=== PATIENT | female | born 1955 | race Caucasian/White ===

== ENCOUNTER 2016-07-08 12:10 | Inpatient (IN) | payer MEDICARE, BC ==
--- NOTE | 2016-07-08 12:25 | ER Document Report ---
ED Medical Screen (RME) - General Stated Complaint: DIFFICULTY BREATHING Mode of Arrival: Ambulatory Information source: Patient Notes: Patient reports MS flareup 2 weeks ago, and then it resolved. Patient was lying in bed for the 2 weeks during her MS flare up. Patient complains of cough and shortness of breath for the past 2 weeks. Patient complains of pain behind left knee. Patient does report a history of PE in the past. hx: PE, MS, cochlear implant I have greeted and performed a rapid initial assessment of this patient. A comprehensive ED assessment and evaluation of the patient, analysis of test results and completion of the medical decision making process will be conducted by additional ED providers. TRAVEL OUTSIDE OF THE [place] IN LAST 30 DAYS: No - Related Data Allergies/Adverse Reactions: adhesive tape [Adhesive Tape] Allergy (Unknown, Verified 07/08/16 12:19) Generalized rash Past Medical History - Past Medical History Cardiac Medical History: Reports: Hx Hypercholesterolemia, Hx Pulmonary Embolism - bilaterally, 2004 Denies: Hx Coronary Artery Disease, Hx Heart Attack, Hx Hypertension Pulmonary Medical History: Denies: Hx Asthma, Hx Bronchitis, Hx COPD - PE IN BOTH LUNGS IN 2004, Hx Pneumonia Neurological Medical History: Denies: Hx Cerebrovascular Accident, Hx Seizures GI Medical History: Reports: Hx Gastroesophageal Reflux Disease, Hx Ulcer Musculoskeltal Medical History: Denies Hx Arthritis, Reports Hx Multiple Sclerosis Past Surgical History: Reports: Hx Hysterectomy, Hx Tonsillectomy. Denies: Hx Pacemaker - Immunizations Hx Diphtheria, Pertussis, Tetanus Vaccination: Yes - BOOSTER 02/24 Physical Exam - Respiratory Respiratory status: No respiratory distress Breath sounds: Nonproductive cough
[2016-07-08 13:11] LABS: ABSOLUTE BASOPHILS # (AUTO) 0.1 10^3/uL (0.0-0.2); ABSOLUTE EOSINOPHILS # (AUTO) 0.3 10^3/uL (0.0-0.6); ABSOLUTE LYMPHOCYTES (AUTO) 2.2 10^3/uL (0.5-4.7); ABSOLUTE NEUT (AUTO) 8.8 10^3/uL (1.7-8.2); BASOPHILS % (AUTO) 0.9 % (0-2); EOSINOPHILS % (AUTO) 2.2 % (0-6); HEMOGLOBIN 8.8 g/dL (12.0-15.5); HGB HCT DIFFERENCE -2.6; MEAN CORPUSCULAR HEMOGLOBIN 19.9 pg (27.0-33.4); MEAN CORPUSCULAR HGB CONC 30.2 g/dL (32.0-36.0); MEAN CORPUSCULAR VOLUME 66 fl (80-97); MONOCYTES % (AUTO) 7.9 % (3-13); RED CELL DISTRIBUTION WIDTH 19.8 % (11.5-14.0); WHITE BLOOD COUNT 12.4 10^3/uL (4.0-10.5)
[2016-07-08 13:20] LABS: PROTHROMBIN TIME 23.4 SEC (11.4-15.4)
[2016-07-08 13:21] LABS: PARTIAL THROMBOPLASTIN TIME 44.2 SEC (23.5-35.8)
[2016-07-08 13:37] LABS: ALANINE AMINOTRANSFERASE 31 U/L (9-52); ALBUMIN 3.5 g/dL (3.5-5.0); ALKALINE PHOSPHATASE 71 U/L (38-126); ANION GAP 11 (5-19); ASPARTATE AMINO TRANSFERASE 18 U/L (14-36); BILIRUBIN,TOTAL 0.3 mg/dL (0.2-1.3); BLOOD UREA NITROGEN 16 mg/dL (7-20); CALCIUM 9.8 mg/dL (8.4-10.2); CARBON DIOXIDE 26 mmol/L (22-30); CHLORIDE 109 mmol/L (98-107); CREATINE KINASE 73 U/L (30-135); CREATININE RESULT 0.98 mg/dL (0.52-1.25); GLUCOSE 110 mg/dL (75-110); MAGNESIUM 1.6 mg/dL (1.6-2.3); POTASSIUM 4.6 mmol/L (3.6-5.0); SODIUM 145.5 mmol/L (137-145); TOTAL PROTEIN 6.9 g/dL (6.3-8.2)
[2016-07-08 13:48] LABS: CREATINE KINASE MB 0.67 ng/mL (<4.55); TROPONIN I < 0.012 ng/mL
[2016-07-08] MEDS ORDERED: IPRATROPIUM/ALBUTEROL 0.5-2.5 MG/3 ML AMPUL NEB ONE (14:46)
--- NOTE | 2016-07-08 14:46 | ER Document Report ---
ED Cardiac - General Chief Complaint: Shortness Of Breath Stated Complaint: DIFFICULTY BREATHING Mode of Arrival: Ambulatory Notes: The patient is a 61-year-old female, past month history multiple sclerosis, PE ( on Coumadin), presents with 1 day of left sided chest pain and 3 days of increased left leg pain and swelling. She has never had this pain before and it started at rest, but is subsiding. In addition, she is also having mild shortness of breath and cough. She received a dose of DuoNeb in the ER triage and feels much better. Denies hemoptysis, nausea, vomiting, back pain, numbness , tingling, fevers or rhinorrhea. TRAVEL OUTSIDE OF THE [place] IN LAST 30 DAYS: No - Related Data Allergies/Adverse Reactions: adhesive tape [Adhesive Tape] Allergy (Unknown, Verified 07/08/16 12:19) Generalized rash Past Medical History - General Information source: Patient - Social History Smoking Status: Unknown if Ever Smoked Chew tobacco use (# tins/day): No Frequency of alcohol use: None Drug Abuse: None Family History: DM Patient has suicidal ideation: No Patient has homicidal ideation: No - Past Medical History Cardiac Medical History: Reports: Hx Hypercholesterolemia, Hx Pulmonary Embolism - bilaterally, 2004 Denies: Hx Coronary Artery Disease, Hx Heart Attack, Hx Hypertension Pulmonary Medical History: Denies: Hx Asthma, Hx Bronchitis, Hx COPD - PE IN BOTH LUNGS IN 2004, Hx Pneumonia Neurological Medical History: Denies: Hx Cerebrovascular Accident, Hx Seizures Renal/ Medical History: Denies: Hx Peritoneal Dialysis GI Medical History: Reports: Hx Gastroesophageal Reflux Disease, Hx Ulcer Musculoskeltal Medical History: Denies Hx Arthritis, Reports Hx Multiple Sclerosis Past Surgical History: Reports: Hx Hysterectomy, Hx Tonsillectomy. Denies: Hx Pacemaker - Immunizations Hx Diphtheria, Pertussis, Tetanus Vaccination: Yes - BOOSTER 02/24 Hx Pneumococcal Vaccination: 05/21/13 Review of Systems - Review of Systems Notes: REVIEW OF SYSTEMS: CONSTITUTIONAL: -fevers, -chills EENT: -eye pain, -difficulty swallowing, -nasal congestion CARDIOVASCULAR: +chest pain, -syncope. RESPIRATORY: -cough, +SOB GASTROINTESTINAL: -abdominal pain, -nausea, -vomiting, -diarrhea GENITOURINARY: -dysuria, -hematuria MUSCULOSKELETAL: +left leg pain, -back pain, -neck pain SKIN: -rash or skin lesions. HEMATOLOGIC: -easy bruising or bleeding. LYMPHATIC: -swollen, enlarged glands. NEUROLOGICAL: -altered mental status or loss of consciousness, -headache, - neurologic symptoms PSYCHIATRIC: -anxiety, -depression. ALL OTHER SYSTEMS REVIEWED AND NEGATIVE. Physical Exam - Vital signs Vitals: Temp Pulse Resp BP Pulse Ox 98.5 F 99 21 H 128/78 H 97 07/08/16 12:21 07/08/16 12:21 07/08/16 12:21 07/08/16 12:21 07/08/16 12:21 - Notes Notes: PHYSICAL EXAMINATION: GENERAL: Well-appearing, well-nourished and in no acute distress. HEAD: Atraumatic, normocephalic. EYES: Pupils equal round and reactive to light, extraocular movements intact, sclera anicteric, conjunctiva are normal. ENT: nares patent, oropharynx clear without exudates. Moist mucous membranes. NECK: Normal range of motion, supple without lymphadenopathy LUNGS: Mild wheezing. No respiratory distress. HEART: Regular rate and rhythm without murmurs ABDOMEN: Soft, nontender, normoactive bowel sounds. No guarding, no rebound. No masses appreciated. EXTREMITIES: Left popliteal tenderness and swelling. Normal range of motion, no pitting or edema. No cyanosis. NEUROLOGICAL: Cranial nerves grossly intact. Normal speech. Normal sensory, motor, and reflex exams. PSYCH: Normal mood, normal affect. SKIN: Warm, Dry, normal turgor, no rashes or lesions noted. Course - Re-evaluation Re-evalutation: Patient with chest pain and new EKG changes compared to her prior EKG 2 months ago. In addition, she has positive DVT on her left lower extremity and is on Coumadin. INR is 1.99. Will bring patient in for observation for further evaluation and treatment of her new EKG changes, chest pain and DVT. Patient comfortable with plan. Spoke to Krupa Castellanos and she has accepted the patient. - Vital Signs Vital signs: Temp Pulse Resp BP Pulse Ox 98.5 F 91 18 115/82 97 07/08/16 12:21 07/08/16 18:19 07/08/16 18:19 07/08/16 15:01 07/08/16 18:19 - Laboratory Result Diagrams: 07/08/16 12:45 02/18/17 12:45 Laboratory results interpreted by me: 07/08/16 07/08/16 07/08/16 12:45 12:45 12:45 WBC 12.4 H Hgb 8.8 L Hct 29.0 L MCV 66 L MCH 19.9 L MCHC 30.2 L RDW 19.8 H Plt Count 655 H Absolute Neutrophils 8.8 H PT 23.4 H APTT 44.2 H Sodium 145.5 H Chloride 109 H Est GFR (Non-Af Amer) 57 L Discharge - Discharge Clinical Impression: Cough, Acute electrocardiogram changes Chest pain Qualifiers: Chest pain type: unspecified Qualified Code(s): R07.9 - Chest pain, unspecified DVT (deep venous thrombosis) Qualifiers: DVT location: lower extremity Affected thrombotic vein of extremity: unspecified vein of extremity Laterality: left Chronicity: unspecified Qualified Code(s): I82.402 - Acute embolism and thrombosis of unspecified deep veins of left lower extremity Condition: Good Disposition: ADMITTED OBSERVATION Admitting Provider: Hospitalist - [facility] Admitted: Telemetry
[2016-07-08] MEDS ORDERED: NITROGLYCERIN 0.4 MG/TAB 25 TAB/BOTTLE SL PRN (14:51)
[2016-07-08] MEDS ORDERED: ONDANSETRON HCL INJ/PF 4 MG/2 ML SDV IV PRN (14:58)
[2016-07-08] MEDS ORDERED: HYDROCODONE/ACETAMINOPHEN 5-325 MG 6 TAB/DSPK PO PRN (14:58)
[2016-07-08] MEDS ORDERED: GUAIFENESIN SYRP 200 MG/10 ML UDC PO PRN (15:00)
[2016-07-08] MEDS ORDERED: IPRATROPIUM/ALBUTEROL 0.5-2.5 MG/3 ML AMPUL NEB PRN (15:00)
[2016-07-08] MEDS ORDERED: LORAZEPAM 0.5 MG TABLET PO PRN (16:17)
[2016-07-08] MEDS ORDERED: BACLOFEN 10 MG TABLET PO PRN (16:22)
[2016-07-08] MEDS ORDERED: BACLOFEN 20 MG TABLET PO PRN (16:33)
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
--- NOTE | 2016-07-08 18:38 | EKG REPORT ---
SEVERITY:- BORDERLINE ECG - SINUS RHYTHM BORDERLINE LEFT AXIS DEVIATION BORDERLINE T ABNORMALITIES, ANT-LAT LEADS : Confirmed by: Ailyn Saldana 08-Jul-2016 18:37:25
[2016-07-08] MEDS: LANSOPRAZOLE 30 MG TAB.RAP.DR PO SCH (18:51)
[2016-07-08] MEDS: METHYLPREDNISOLONE INJ 125 MG/2 ML SDV IV SCH (18:52)
[2016-07-08] MEDS ORDERED: HYDROCODONE/ACETAMINOPHEN 5-325 MG TABLET ONE (20:22)
[2016-07-08] MEDS ORDERED: WARFARIN SODIUM 7.5 MG TABLET PO SCH (22:00)
[2016-07-08] MEDS ORDERED: METOPROLOL SUCCINATE 25 MG TAB.SR.24H PO SCH (22:00)
[2016-07-08] MEDS ORDERED: VENLAFAXINE HCL 37.5 MG CAP.SR.24H PO SCH (22:00)
[2016-07-08] MEDS: VENLAFAXINE HCL 75 MG CAP.SR.24H PO SCH (22:58)
[2016-07-08] MEDS: SIMVASTATIN 10 MG TABLET PO SCH (22:58)
[2016-07-08] MEDS: GABAPENTIN 300 MG CAPSULE PO SCH (22:59)
[2016-07-09] MEDS: IPRATROPIUM/ALBUTEROL 0.5-2.5 MG/3 ML AMPUL NEB SCH ×3 (00:47→16:21)
[2016-07-09] MEDS: METHYLPREDNISOLONE INJ 125 MG/2 ML SDV IV SCH ×3 (02:47→17:42)
[2016-07-09] MEDS: LANSOPRAZOLE 30 MG TAB.RAP.DR PO SCH ×2 (06:34→17:39)
[2016-07-09 08:08] LABS: PROTHROMBIN TIME 21.9 SEC (11.4-15.4)
[2016-07-09] MEDS: GABAPENTIN 300 MG CAPSULE PO SCH ×2 (08:15→21:20)
[2016-07-09 08:16] LABS: CHOLESTEROL 170.13 mg/dL (0-200); Direct HDL 37 mg/dL (>40); TRIGLYCERIDES 128 mg/dL (<150)
[2016-07-09 08:27] LABS: DIRECT LDL 103 mg/dL (<100)
[2016-07-09] MEDS: ENOXAPARIN SODIUM INJ 80 MG/0.8 ML DISP.SYRIN SUBCUT SCH ×2 (10:11→21:20)
[2016-07-09] MEDS: ASPIRIN 81 MG TABLET, CHEWABLE PO SCH (10:12)
[2016-07-09] MEDS: FLUTICASONE NASAL SPRAY 50 MCG/SPRY 120 SPRAY/16 GM NASL SCH (10:20)
[2016-07-09 13:31] LABS: APPEARANCE,URINE CLEAR; BILIRUBIN,URINE NEGATIVE (NEGATIVE); GLUCOSE, URINE >=500 mg/dL (NEGATIVE); KETONES,URINE NEGATIVE (NEGATIVE); LEUKOCYTE ESTERASE,URINE NEGATIVE (NEGATIVE); NITRITE,URINE NEGATIVE (NEGATIVE); PROTEIN,URINE NEGATIVE (NEGATIVE); URINE SPECIFIC GRAVITY 1.017; UROBILINOGEN,URINE NEGATIVE mg/dL (<2.0)
--- NOTE | 2016-07-09 14:09 | PDOC PROGRESS REPORT ---
Subjective Progress Note for:: 07/09/16 Subjective:: Patient seen on morning rounds. She is presently resting comfortably in bed. She states her cough is somewhat improved since admission. She continues to have shortness of breath with exertion. She was found on CTA of her chest and abdomen to have new pulmonary embolus despite being on Coumadin. Her INR is slightly subtherapeutic. She states she has been compliant with her medication but not with the frequency of her testing. She has not seen a dimension specification inspector for coagulopathy workup. She is also noted to be anemic. She states she has a family history of iron deficiency and B12 anemias. She denies any chest pain overnight or headache. Denies any nausea, vomiting, or abdominal pain. She continues have mild pain in left knee. Her venous duplex of the knee was negative. She denies any other symptoms at the present time. Physical Exam Vital Signs: Temp Pulse Resp BP Pulse Ox 98.7 F 98 21 H 137/73 H 95 07/09/16 11:30 07/09/16 11:30 07/09/16 11:30 07/09/16 11:30 07/09/16 11:30 Intake & Output 07/08/16 07/09/16 07/10/16 06:59 06:59 06:59 Intake Total 540 Balance 540 Weight 83.4 kg General appearance: PRESENT: no acute distress, well-developed, well-nourished Head exam: PRESENT: atraumatic, normocephalic Eye exam: PRESENT: conjunctiva pink, EOMI, PERRLA. ABSENT: scleral icterus Ear exam: PRESENT: normal external ear exam Mouth exam: PRESENT: moist, tongue midline Neck exam: ABSENT: carotid bruit, JVD, lymphadenopathy, thyromegaly Respiratory exam: PRESENT: clear to auscultation adrián. ABSENT: rales, rhonchi, wheezes Cardiovascular exam: PRESENT: RRR. ABSENT: diastolic murmur, rubs, systolic murmur Pulses: PRESENT: normal dorsalis pedis pul Vascular exam: PRESENT: normal capillary refill GI/Abdominal exam: PRESENT: normal bowel sounds, soft. ABSENT: distended, guarding, mass, organolmegaly, rebound, tenderness Rectal exam: PRESENT: deferred Extremities exam: PRESENT: full ROM. ABSENT: calf tenderness, clubbing, pedal edema Neurological exam: PRESENT: alert, awake, oriented to person, oriented to place , oriented to time, oriented to situation, CN II-XII grossly intact. ABSENT: motor sensory deficit Psychiatric exam: PRESENT: appropriate affect, normal mood. ABSENT: homicidal ideation, suicidal ideation Skin exam: PRESENT: dry, intact, warm. ABSENT: cyanosis, rash Results Laboratory Results: 07/09/16 07/09/16 07:45 13:05 Triglycerides 128 Cholesterol 170.13 LDL Cholesterol Direct 103 H VLDL Cholesterol 26.0 HDL Cholesterol 37 L Urine Color STRAW Urine Appearance CLEAR Urine pH 6.0 Ur Specific [place] 1.017 Urine Protein NEGATIVE Urine Glucose (UA) >=500 H Urine Ketones NEGATIVE Urine Blood NEGATIVE Urine Nitrite NEGATIVE Ur Leukocyte Esterase NEGATIVE Urine WBC (Auto) 1 Urine RBC (Auto) 0 07/08/16 07/09/16 07/09/16 19:30 01:21 07:45 Troponin I < 0.012 < 0.012 < 0.012 Impressions: Chest/Abdomen CTA 07/08/16 00:00 IMPRESSION: 1. Positive for pulmonary embolus in a patient with known DVT. Chest X-Ray 07/08/16 12:24 IMPRESSION: No acute findings Venous Doppler Study 07/08/16 14:46 IMPRESSION: Positive for left calf DVT, posterior tibial and peroneal veins. Assessment & Plan - Diagnosis (1) Chest pain Qualifiers: Chest pain type: unspecified Qualified Code(s): R07.9 - Chest pain, unspecified Is this a current diagnosis for this admission?: YesPlan: Pain is atypical for angina. Troponin is negative. ECG nonspecific T wave changes in anterior leads. Will admit to [facility] as observation. Serial troponins (2) Chronic anticoagulation Is this a current diagnosis for this admission?: YesPlan: Patient has history of PE on Warfarin therapeutic levels. Will obtain CTA of chest to rule out any new processes (3) GERD (gastroesophageal reflux disease) Qualifiers: Esophagitis presence: without esophagitis Qualified Code(s): K21.9 - Gastro-esophageal reflux disease without esophagitis Is this a current diagnosis for this admission?: YesPlan: Continue PPI (4) Hyperlipidemia Qualifiers: Hyperlipidemia type: unspecified Qualified Code(s): E78.5 - Hyperlipidemia, unspecified Is this a current diagnosis for this admission?: YesPlan: Continue statin therapy (5) Multiple sclerosis Is this a current diagnosis for this admission?: YesPlan: Stable continue home medications (6) Cough Is this a current diagnosis for this admission?: YesPlan: Steroids, nebulizer treatment - Time Time Spent with patient: 25-34 minutes Critical Time spent with patient: 15-24 minutes Medications reviewed and adjusted accordingly: Yes - Inpatient Certification Based on my medical assessment, after consideration of the patient's comorbidities, presenting symptoms, or acuity I expect that the services needed warrant INPATIENT care.: Yes I certify that my determination is in accordance with my understanding of Medicare's requirements for reasonable and necessary INPATIENT services [42 CFR 412.3e].: Yes Medical Necessity: Need Close Monitoring Due to Risk of Patient Decompensation
[2016-07-09] MEDS ORDERED: DIPHENOXYLATE HCL/ATROP SULF 2.5-0.025 MG TABLET PO PRN (14:23)
[2016-07-09] MEDS ORDERED: DICYCLOMINE HCL 10 MG CAPSULE PO PRN (14:23)
[2016-07-09] MEDS ORDERED: BACLOFEN 10 MG TABLET PO PRN (14:23)
[2016-07-09] MEDS ORDERED: GLATIRAMER ACETATE 40 MG SQ SCH (14:45)
[2016-07-09] MEDS ORDERED: ARMODAFINIL 150 MG PO SCH (15:00)
[2016-07-09] MEDS ORDERED: MAG CARB/AL HYDROX/ALGINIC AC 355 ML BOTTLE PO PRN (15:48)
[2016-07-09] MEDS ORDERED: MAG CARB/AL HYDROX/ALGINIC AC 355 ML BOTTLE PO ONE (16:30)
[2016-07-09] MEDS: METOPROLOL SUCCINATE 25 MG TAB.SR.24H PO SCH (17:42)
[2016-07-09] MEDS: SIMVASTATIN 10 MG TABLET PO SCH (21:21)
[2016-07-09] MEDS: ZOLPIDEM TARTRATE 5 MG TABLET PO PRN (21:21)
[2016-07-09] MEDS: VENLAFAXINE HCL 75 MG CAP.SR.24H PO SCH (21:21)
[2016-07-09] MEDS ORDERED: VENLAFAXINE HCL 37.5 MG CAP.SR.24H PO SCH (22:00)
[2016-07-09] MEDS ORDERED: GABAPENTIN 300 MG CAPSULE PO SCH (22:00)
[2016-07-10] MEDS: IPRATROPIUM/ALBUTEROL 0.5-2.5 MG/3 ML AMPUL NEB SCH ×3 (00:21→16:00)
[2016-07-10] MEDS: METHYLPREDNISOLONE INJ 125 MG/2 ML SDV IV SCH (02:26)
[2016-07-10 05:46] LABS: HEMATOCRIT 26.8 % (36.0-47.0); HGB HCT DIFFERENCE -2.8; MEAN CORPUSCULAR HEMOGLOBIN 19.8 pg (27.0-33.4); MEAN CORPUSCULAR HGB CONC 30.1 g/dL (32.0-36.0); MEAN CORPUSCULAR VOLUME 66 fl (80-97); RED BLOOD COUNT 4.06 10^6/uL (3.72-5.28); RED CELL DISTRIBUTION WIDTH 20.7 % (11.5-14.0); WHITE BLOOD COUNT 24.5 10^3/uL (4.0-10.5)
[2016-07-10] MEDS: LANSOPRAZOLE 30 MG TAB.RAP.DR PO SCH ×2 (05:53→18:06)
[2016-07-10] MEDS ORDERED: LORAZEPAM 0.5 MG TABLET PO PRN (07:21)
[2016-07-10] MEDS ORDERED: ARMODAFINIL 150 MG PO SCH (08:00)
[2016-07-10 08:06] LABS: PROTHROMBIN TIME 27.1 SEC (11.4-15.4)
[2016-07-10] MEDS: GABAPENTIN 300 MG CAPSULE PO SCH ×2 (09:29→21:38)
[2016-07-10] MEDS: FLUTICASONE NASAL SPRAY 50 MCG/SPRY 120 SPRAY/16 GM NASL SCH (09:29)
[2016-07-10] MEDS: ASPIRIN 81 MG TABLET, CHEWABLE PO SCH (09:30)
[2016-07-10] MEDS: VALACYCLOVIR HCL 500 MG TABLET PO SCH (09:30)
[2016-07-10] MEDS: ENOXAPARIN SODIUM INJ 80 MG/0.8 ML DISP.SYRIN SUBCUT SCH (09:32)
[2016-07-10] MEDS: LEVOFLOXACIN 750 MG TABLET PO SCH (09:35)
[2016-07-10] MEDS ORDERED: GLATIRAMER ACETATE 40 MG SQ SCH (10:00)
[2016-07-10] MEDS: PREDNISONE 20 MG TABLET PO SCH ×2 (10:17→18:05)
[2016-07-10] MEDS: IRON POLYSACCHARIDES COMPLEX 150 MG CAPSULE PO SCH (11:42)
[2016-07-10] MEDS ORDERED: ENOXAPARIN SODIUM INJ 80 MG/0.8 ML DISP.SYRIN SUBCUT SCH (14:40)
[2016-07-10] MEDS ORDERED: METOCLOPRAMIDE HCL ORAL SOLN 10 MG/10 ML UDCUP PO ONE (16:04)
[2016-07-10] MEDS ORDERED: LIDOCAINE 2% VISCOUS SOLN 20 ML UDCUP PO ONE (16:04)
[2016-07-10] MEDS ORDERED: MAG HYDROX/AL HYDROX/SIMETH SUSP 30 ML UDCUP PO ONE (16:04)
[2016-07-10] MEDS ORDERED: KETOROLAC TROMETHAMINE INJ/PF 30 MG/1 ML SDV IV ONE (16:30)
[2016-07-10 16:58] LABS: FOLATE 5.43 ng/mL (>2.76)
[2016-07-10] MEDS ORDERED: MORPHINE SULFATE 10 MG/ML INJ IV ONE (17:00)
[2016-07-10] MEDS: METOPROLOL SUCCINATE 25 MG TAB.SR.24H PO SCH (18:06)
--- NOTE | 2016-07-10 20:08 | EKG REPORT ---
SEVERITY:- NORMAL ECG - SINUS RHYTHM : Confirmed by: Ailyn Saldana 10-Jul-2016 20:06:28
--- NOTE | 2016-07-10 21:12 | XCELERA REPORT ---
[address] [address] Transthoracic Echocardiogram Report Name: LAUREN DIAL Age: 61 yrs Gender: Female : 1955 Patient Status: Inpatient Patient Location: [id number]\S\404\S\B Study Date: 07/10/2016 02:02 PM Height: 61 in Weight: 183 lb BSA: 1.8 m2 Procedure: A two-dimensional transthoracic echocardiogram with color flow and Doppler was performed. Study Quality: Fair. Reason For Study: SOB, PE and cardiomegaly History: SOB, PE and cardiomegaly. Ordering Physician: LEYLA CASTRO Performed By: Ashley Goodman Interpretation Summary The left ventricle is normal in size. There is normal left ventricular wall thickness. LV EF is > than 65% Left ventricular systolic function is normal. Doppler measurements suggest impaired left ventricular relaxation, which is associated with grade I/IV or mild diastolic dysfunction The left ventricular wall motion is normal. The left atrial size is normal. The interatrial septum is intact with no evidence for an atrial septal defect. There is no evidence of mitral valve prolapse. There is no mitral valve stenosis. There is a trace amount of mitral regurgitation There is no aortic valve stenosis There is no LVOT obstruction. No aortic regurgitation is present. There is no tricuspid stenosis. There is a trace amount of tricuspid regurgitation There is mild pulmonary hypertension by echo RVSP is 35 to 40 mm of Hg , with RA mean of 5 to 10. There is no pulmonic valvular stenosis. There is no pulmonic valvular regurgitation. There is no pericardial effusion. MMode/2D Measurements \T\ Calculations RVDd: 2.6 cm LVIDd: 5.0 cm FS: 48.5 % Ao root diam: 2.7 cm IVSd: 1.0 cm LVIDs: 2.6 cm EDV(Teich): 118.7 ml LVPWd: 0.99 cm ESV(Teich): 24.1 ml Ao root area: 5.6 cm2 EF(Teich): 79.7 % LA dimension: 3.5 cm Doppler Measurements \T\ Calculations MV E max joshua: MV P1/2t max joshua: Ao V2 max: LV V1 max P.8 cm/sec 95.3 cm/sec 140.1 cm/sec 4.5 mmHg MV A max joshua: MV P1/2t: 62.1 msec Ao max PG: LV V1 max: 119.4 cm/sec 7.8 mmHg 105.6 cm/sec MV E/A: 0.79 MVA(P1/2t): 3.5 cm2 MV dec slope: 449.1 cm/sec2 MV dec time: 0.20 sec PA V2 max: TR max joshua: 93.8 cm/sec 271.5 cm/sec PA max P.5 mmHgTR max P.5 mmHg Left Ventricle The left ventricle is normal in size. There is normal left ventricular wall thickness. LV EF is > than 65%. Left ventricular systolic function is normal. Doppler measurements suggest impaired left ventricular relaxation, which is associated with grade I/IV or mild diastolic dysfunction. The left ventricular wall motion is normal. There is no thrombus. There is no ventricular septal defect visualized. Right Ventricle The right ventricle is normal in size and function. Atria The right atrium is normal. The left atrial size is normal. The interatrial septum is intact with no evidence for an atrial septal defect. Mitral Valve There is no evidence of mitral valve prolapse. There is no vegetation seen on the mitral valve. There is no mitral valve stenosis. There is a trace amount of mitral regurgitation. Aortic Valve The aortic valve is trileaflet. The aortic valve opens well. There is no aortic valvular vegetation. There is no aortic valve stenosis. There is no LVOT obstruction. No aortic regurgitation is present. Tricuspid Valve There is no tricuspid stenosis. There is a trace amount of tricuspid regurgitation. There is mild pulmonary hypertension by echo. RVSP is 35 to 40 mm of Hg , with RA mean of 5 to 10. Pulmonic Valve There is no pulmonic valvular stenosis. There is no pulmonic valvular regurgitation. Great Vessels The aortic root is normal size. Effusions There is no pericardial effusion. : LEYLA CASTRO > Gabriella Chi
[2016-07-10] MEDS: ENOXAPARIN SODIUM INJ 100 MG/1 ML DISP.SYRIN SUBCUT SCH (21:38)
[2016-07-10] MEDS: VENLAFAXINE HCL 75 MG CAP.SR.24H PO SCH (21:38)
[2016-07-10] MEDS: SIMVASTATIN 10 MG TABLET PO SCH (21:38)
[2016-07-10 21:54] LABS: APPEARANCE,URINE CLEAR; BILIRUBIN,URINE NEGATIVE (NEGATIVE); GLUCOSE, URINE NEGATIVE (NEGATIVE); KETONES,URINE NEGATIVE (NEGATIVE); LEUKOCYTE ESTERASE,URINE TRACE (NEGATIVE); NITRITE,URINE NEGATIVE (NEGATIVE); PROTEIN,URINE NEGATIVE (NEGATIVE); URINE SPECIFIC GRAVITY 1.016; UROBILINOGEN,URINE NEGATIVE mg/dL (<2.0)
[2016-07-11] MEDS: LANSOPRAZOLE 30 MG TAB.RAP.DR PO SCH ×2 (05:12→17:21)
[2016-07-11] MEDS: GABAPENTIN 300 MG CAPSULE PO SCH ×2 (07:45→21:28)
[2016-07-11] MEDS: HYDROCODONE/ACETAMINOPHEN 5-325 MG TABLET PO PRN ×2 (08:19→13:29)
[2016-07-11] MEDS: ASPIRIN 81 MG TABLET, CHEWABLE PO SCH (09:32)
[2016-07-11] MEDS: PREDNISONE 20 MG TABLET PO SCH ×2 (09:32→17:21)
[2016-07-11] MEDS: FLUTICASONE NASAL SPRAY 50 MCG/SPRY 120 SPRAY/16 GM NASL SCH (09:32)
[2016-07-11] MEDS: LEVOFLOXACIN 750 MG TABLET PO SCH (09:32)
[2016-07-11] MEDS: VALACYCLOVIR HCL 500 MG TABLET PO SCH (09:33)
[2016-07-11] MEDS: ENOXAPARIN SODIUM INJ 100 MG/1 ML DISP.SYRIN SUBCUT SCH ×2 (09:41→21:28)
[2016-07-11 12:38] LABS: HEMATOCRIT 27.6 % (36.0-47.0); HEMOGLOBIN 8.2 g/dL (12.0-15.5); MEAN CORPUSCULAR HEMOGLOBIN 19.2 pg (27.0-33.4); MEAN CORPUSCULAR HGB CONC 29.8 g/dL (32.0-36.0); MEAN CORPUSCULAR VOLUME 65 fl (80-97); RED BLOOD COUNT 4.28 10^6/uL (3.72-5.28); WHITE BLOOD COUNT 22.6 10^3/uL (4.0-10.5)
[2016-07-11 13:03] LABS: ANION GAP 11 (5-19); BLOOD UREA NITROGEN 28 mg/dL (7-20); CALCIUM 9.9 mg/dL (8.4-10.2); CARBON DIOXIDE 24 mmol/L (22-30); CHLORIDE 104 mmol/L (98-107); GLUCOSE 129 mg/dL (75-110); MAGNESIUM 2.1 mg/dL (1.6-2.3); SODIUM 139.2 mmol/L (137-145)
[2016-07-11] MEDS: IRON POLYSACCHARIDES COMPLEX 150 MG CAPSULE PO SCH (13:20)
--- NOTE | 2016-07-11 16:33 | PDOC PROGRESS REPORT ---
Subjective Progress Note for:: 07/11/16 Subjective:: The patient was seen earlier today on rounds. The patient denies any nausea, vomiting, diarrhea, shortness of breath, dizziness, chest pain, heart palpitations, fevers, or chills. The patient has remained afebrile. Blood pressures have been in a good range. When prompted the patient voices no other concerns at this time. Review of systems: The rest of the review of systems is negative. Physical Exam Vital Signs: Temp Pulse Resp BP Pulse Ox 97.5 F 78 16 129/75 H 99 07/11/16 12:00 07/11/16 14:00 07/11/16 12:00 07/11/16 12:00 07/11/16 12:00 Intake & Output 07/09/16 07/10/16 07/11/16 23:59 23:59 23:59 Intake Total 725 580 Output Total 0 400 Balance 725 180 Weight 83.2 kg 84.2 kg General appearance: PRESENT: no acute distress, well-developed, well-nourished Head exam: PRESENT: atraumatic, normocephalic Eye exam: PRESENT: conjunctiva pink, EOMI, PERRLA. ABSENT: scleral icterus Ear exam: PRESENT: normal external ear exam Mouth exam: PRESENT: moist, tongue midline Neck exam: ABSENT: carotid bruit, JVD, lymphadenopathy, thyromegaly Respiratory exam: PRESENT: rhonchi, symmetrical, unlabored. ABSENT: rales, tachypnea, wheezes Cardiovascular exam: PRESENT: RRR. ABSENT: diastolic murmur, rubs, systolic murmur Pulses: PRESENT: normal dorsalis pedis pul Vascular exam: PRESENT: normal capillary refill GI/Abdominal exam: PRESENT: normal bowel sounds, soft. ABSENT: distended, guarding, mass, organolmegaly, rebound, tenderness Rectal exam: PRESENT: deferred Extremities exam: PRESENT: full ROM. ABSENT: calf tenderness, clubbing, pedal edema Neurological exam: PRESENT: alert, awake, oriented to person, oriented to place , oriented to time, oriented to situation, CN II-XII grossly intact. ABSENT: motor sensory deficit Psychiatric exam: PRESENT: normal mood, unusual affect. ABSENT: homicidal ideation, suicidal ideation Skin exam: PRESENT: dry, intact, warm. ABSENT: cyanosis, rash Results Laboratory Results: 07/11/16 12:20 07/11/16 12:20 07/10/16 07/10/16 07/11/16 14:59 21:30 12:20 WBC 22.6 H RBC 4.28 Hgb 8.2 L Hct 27.6 L MCV 65 L MCH 19.2 L MCHC 29.8 L RDW 20.0 H Plt Count 717 H Sodium Potassium Chloride Carbon Dioxide Anion Gap BUN Creatinine Est GFR ( Amer) Est GFR (Non-Af Amer) Glucose Calcium Magnesium Iron 16.3 L TIBC 499 H % Saturation 3 Ferritin 13.30 Vitamin B12 184.0 L Folate 5.43 Urine Color YELLOW Urine Appearance CLEAR Urine pH 6.0 Ur Specific [place] 1.016 Urine Protein NEGATIVE Urine Glucose (UA) NEGATIVE Urine Ketones NEGATIVE Urine Blood NEGATIVE Urine Nitrite NEGATIVE Ur Leukocyte Esterase TRACE H Urine WBC (Auto) 3 Urine RBC (Auto) 1 07/11/16 12:20 WBC RBC Hgb Hct MCV MCH MCHC RDW Plt Count Sodium 139.2 Potassium 4.0 Chloride 104 Carbon Dioxide 24 Anion Gap 11 BUN 28 H Creatinine 0.80 Est GFR ( Amer) > 60 Est GFR (Non-Af Amer) > 60 Glucose 129 H Calcium 9.9 Magnesium 2.1 Iron TIBC % Saturation Ferritin Vitamin B12 Folate Urine Color Urine Appearance Urine pH Ur Specific [place] Urine Protein Urine Glucose (UA) Urine Ketones Urine Blood Urine Nitrite Ur Leukocyte Esterase Urine WBC (Auto) Urine RBC (Auto) Impressions: Chest/Abdomen CTA 07/08/16 00:00 IMPRESSION: 1. Positive for pulmonary embolus in a patient with known DVT. Venous Doppler Study 07/08/16 14:46 IMPRESSION: Positive for left calf DVT, posterior tibial and peroneal veins. Chest X-Ray 07/11/16 00:00 IMPRESSION: 1. Trace pleural effusions may be present. The lungs are otherwise clear. Assessment & Plan - Diagnosis (1) Pulmonary embolism Qualifiers: Pulmonary embolism type: other Chronicity: chronic Acute cor pulmonale presence: without acute cor pulmonale Qualified Code(s): I27.82 - Chronic pulmonary embolism Is this a current diagnosis for this admission?: YesPlan: Echo was unremarkable. Will continue Lovenox. (2) Chest pain Qualifiers: Chest pain type: unspecified Qualified Code(s): R07.9 - Chest pain, unspecified Is this a current diagnosis for this admission?: YesPlan: Nearly resolved. Will obtain chest x-ray given the patient's white count and rhonchorous lung sounds. (3) DVT (deep venous thrombosis) Qualifiers: DVT location: lower extremity Affected thrombotic vein of extremity: unspecified vein of extremity Laterality: left Chronicity: unspecified Qualified Code(s): I82.402 - Acute embolism and thrombosis of unspecified deep veins of left lower extremity Is this a current diagnosis for this admission?: YesPlan: Will continue Lovenox appears patient's failed outpatient Coumadin. (4) DVT (deep venous thrombosis) Qualifiers: DVT location: lower extremity Affected thrombotic vein of extremity: tibial Laterality: left Is this a current diagnosis for this admission?: Yes (5) Anemia of chronic disease Is this a current diagnosis for this admission?: Yes (6) Multiple sclerosis Is this a current diagnosis for this admission?: Yes (7) Chronic anticoagulation Is this a current diagnosis for this admission?: Yes (8) GERD (gastroesophageal reflux disease) Qualifiers: Esophagitis presence: without esophagitis Qualified Code(s): K21.9 - Gastro-esophageal reflux disease without esophagitis Is this a current diagnosis for this admission?: Yes (9) Hyperlipidemia Qualifiers: Hyperlipidemia type: unspecified Qualified Code(s): E78.5 - Hyperlipidemia, unspecified Is this a current diagnosis for this admission?: Yes - Time Time Spent with patient: 25-34 minutes Medications reviewed and adjusted accordingly: Yes Anticipated discharge: Home Within: within 24 hours
[2016-07-11] MEDS: METOPROLOL SUCCINATE 25 MG TAB.SR.24H PO SCH (17:21)
[2016-07-11] MEDS: SIMVASTATIN 10 MG TABLET PO SCH (21:28)
[2016-07-11] MEDS: DIPHENHYDRAMINE HCL 25 MG CAPSULE PO SCH (21:28)
[2016-07-11] MEDS: VENLAFAXINE HCL 75 MG CAP.SR.24H PO SCH (21:28)
[2016-07-11] MEDS: ZOLPIDEM TARTRATE 5 MG TABLET PO PRN (21:36)
[2016-07-12] MEDS: LANSOPRAZOLE 30 MG TAB.RAP.DR PO SCH ×2 (05:18→18:08)
[2016-07-12 06:10] LABS: HEMATOCRIT 26.2 % (36.0-47.0); HGB HCT DIFFERENCE -2.5; MEAN CORPUSCULAR HEMOGLOBIN 19.7 pg (27.0-33.4); MEAN CORPUSCULAR HGB CONC 30.3 g/dL (32.0-36.0); MEAN CORPUSCULAR VOLUME 65 fl (80-97); RED BLOOD COUNT 4.02 10^6/uL (3.72-5.28); RED CELL DISTRIBUTION WIDTH 20.2 % (11.5-14.0); WHITE BLOOD COUNT 19.9 10^3/uL (4.0-10.5)
[2016-07-12 06:22] LABS: HEMOGLOBIN 7.9 g/dL (12.0-15.5)
[2016-07-12 06:30] LABS: ANION GAP 9 (5-19); BLOOD UREA NITROGEN 27 mg/dL (7-20); CALCIUM 9.6 mg/dL (8.4-10.2); CARBON DIOXIDE 25 mmol/L (22-30); CHLORIDE 106 mmol/L (98-107); GLUCOSE 97 mg/dL (75-110); MAGNESIUM 2.4 mg/dL (1.6-2.3); SODIUM 139.9 mmol/L (137-145)
[2016-07-12 06:56] LABS: POTASSIUM 4.3 mmol/L (3.6-5.0)
[2016-07-12] MEDS: GABAPENTIN 300 MG CAPSULE PO SCH ×2 (07:50→21:14)
[2016-07-12] MEDS: HYDROCODONE/ACETAMINOPHEN 5-325 MG TABLET PO PRN ×2 (08:37→21:14)
[2016-07-12 08:42] LABS: APPEARANCE,URINE SLIGHTLY-CLOUDY; BILIRUBIN,URINE NEGATIVE (NEGATIVE); GLUCOSE, URINE NEGATIVE (NEGATIVE); KETONES,URINE NEGATIVE (NEGATIVE); LEUKOCYTE ESTERASE,URINE LARGE (NEGATIVE); NITRITE,URINE NEGATIVE (NEGATIVE); PROTEIN,URINE NEGATIVE (NEGATIVE); URINE SPECIFIC GRAVITY 1.014; UROBILINOGEN,URINE NEGATIVE mg/dL (<2.0)
[2016-07-12] MEDS ORDERED: BISACODYL 10 MG SUPP.RECT PR ONE (08:47)
[2016-07-12] MEDS ORDERED: BISACODYL 10 MG SUPP.RECT PR PRN (08:47)
[2016-07-12] MEDS ORDERED: DIPHENHYDRAMINE HCL 25 MG CAPSULE PO PRN (09:13)
[2016-07-12] MEDS ORDERED: ACETAMINOPHEN 325 MG TABLET PO PRN (09:13)
[2016-07-12] MEDS: VALACYCLOVIR HCL 500 MG TABLET PO SCH (09:46)
[2016-07-12] MEDS: PREDNISONE 20 MG TABLET PO SCH ×2 (09:47→18:08)
[2016-07-12] MEDS: LEVOFLOXACIN 750 MG TABLET PO SCH (09:48)
[2016-07-12] MEDS: ASPIRIN 81 MG TABLET, CHEWABLE PO SCH (09:48)
[2016-07-12] MEDS: FLUTICASONE NASAL SPRAY 50 MCG/SPRY 120 SPRAY/16 GM NASL SCH (09:51)
[2016-07-12] MEDS ORDERED: FERUMOXYTOL (NON-ESRD) 510 MG/NS 100 ML IV ONE ×2 (10:30)
[2016-07-12] MEDS: ENOXAPARIN SODIUM INJ 100 MG/1 ML DISP.SYRIN SUBCUT SCH ×2 (10:30→21:14)
[2016-07-12] MEDS: IRON POLYSACCHARIDES COMPLEX 150 MG CAPSULE PO SCH (11:33)
--- NOTE | 2016-07-12 15:34 | PDOC PROGRESS REPORT ---
Subjective Progress Note for:: 07/12/16 Subjective:: The patient was seen earlier today on rounds. The patient denies any nausea, vomiting, diarrhea, shortness of breath, dizziness, chest pain, heart palpitations, fevers, or chills. The patient has remained afebrile. Blood pressures have been in a good range. The patient did have a significant bowel movement which improved her symptoms. When prompted the patient voices no other concerns at this time. I discussed the case with Dr. Lentz who is agreed to see the patient. Review of systems: The rest of the review of systems is negative. Physical Exam Vital Signs: Temp Pulse Resp BP Pulse Ox 98.1 F 75 12 129/83 H 97 07/12/16 10:51 07/12/16 10:51 07/12/16 10:51 07/12/16 10:51 07/12/16 10:51 Intake & Output 07/10/16 07/11/16 07/12/16 23:59 23:59 23:59 Intake Total 725 760 445 Output Total 0 400 400 Balance 725 360 45 Weight 83.2 kg 84.2 kg 85.3 kg General appearance: PRESENT: no acute distress, well-developed, well-nourished Head exam: PRESENT: atraumatic, normocephalic Eye exam: PRESENT: conjunctiva pink, EOMI, PERRLA. ABSENT: scleral icterus Ear exam: PRESENT: normal external ear exam Mouth exam: PRESENT: moist, tongue midline Neck exam: ABSENT: carotid bruit, JVD, lymphadenopathy, thyromegaly Respiratory exam: PRESENT: rhonchi, symmetrical, unlabored. ABSENT: rales, tachypnea, wheezes Cardiovascular exam: PRESENT: RRR. ABSENT: diastolic murmur, rubs, systolic murmur Pulses: PRESENT: normal dorsalis pedis pul Vascular exam: PRESENT: normal capillary refill GI/Abdominal exam: PRESENT: normal bowel sounds, soft. ABSENT: distended, guarding, mass, organolmegaly, rebound, tenderness Rectal exam: PRESENT: deferred Extremities exam: PRESENT: full ROM. ABSENT: calf tenderness, clubbing, pedal edema Neurological exam: PRESENT: alert, awake, oriented to person, oriented to place , oriented to time, oriented to situation, CN II-XII grossly intact. ABSENT: motor sensory deficit Psychiatric exam: PRESENT: normal mood, unusual affect. ABSENT: homicidal ideation, suicidal ideation Skin exam: PRESENT: dry, intact, warm. ABSENT: cyanosis, rash Results Laboratory Results: 07/12/16 05:20 07/12/16 05:20 07/10/16 07/12/16 07/12/16 14:59 05:20 05:20 WBC 19.9 H RBC 4.02 Hgb 7.9 L Hct 26.2 L MCV 65 L MCH 19.7 L MCHC 30.3 L RDW 20.2 H Plt Count 738 H Sodium 139.9 Potassium 4.3 Chloride 106 Carbon Dioxide 25 Anion Gap 9 BUN 27 H Creatinine 0.80 Est GFR ( Amer) > 60 Est GFR (Non-Af Amer) > 60 Glucose 97 Calcium 9.6 Magnesium 2.4 H Transferrin 376 H Urine Color Urine Appearance Urine pH Ur Specific [place] Urine Protein Urine Glucose (UA) Urine Ketones Urine Blood Urine Nitrite Ur Leukocyte Esterase Urine WBC (Auto) Urine RBC (Auto) Stool Occult Blood 07/12/16 07/12/16 08:23 11:00 WBC RBC Hgb Hct MCV MCH MCHC RDW Plt Count Sodium Potassium Chloride Carbon Dioxide Anion Gap BUN Creatinine Est GFR ( Amer) Est GFR (Non-Af Amer) Glucose Calcium Magnesium Transferrin Urine Color YELLOW Urine Appearance SLIGHTLY-CLOUDY Urine pH 6.0 Ur Specific [place] 1.014 Urine Protein NEGATIVE Urine Glucose (UA) NEGATIVE Urine Ketones NEGATIVE Urine Blood NEGATIVE Urine Nitrite NEGATIVE Ur Leukocyte Esterase LARGE H Urine WBC (Auto) 17 Urine RBC (Auto) 4 Stool Occult Blood POSITIVE Impressions: Chest/Abdomen CTA 07/08/16 00:00 IMPRESSION: 1. Positive for pulmonary embolus in a patient with known DVT. Venous Doppler Study 07/08/16 14:46 IMPRESSION: Positive for left calf DVT, posterior tibial and peroneal veins. Chest X-Ray 07/11/16 00:00 IMPRESSION: 1. Trace pleural effusions may be present. The lungs are otherwise clear. Assessment & Plan - Diagnosis (1) Pulmonary embolism Qualifiers: Pulmonary embolism type: other Chronicity: chronic Acute cor pulmonale presence: without acute cor pulmonale Qualified Code(s): I27.82 - Chronic pulmonary embolism Is this a current diagnosis for this admission?: YesPlan: Echo was unremarkable. Will continue Lovenox. Will have the patient to be seen by Dr. Lentz given her hypercoagulable state and failure of Coumadin. (2) Chest pain Qualifiers: Chest pain type: unspecified Qualified Code(s): R07.9 - Chest pain, unspecified Is this a current diagnosis for this admission?: YesPlan: Resolved (3) DVT (deep venous thrombosis) Qualifiers: DVT location: lower extremity Affected thrombotic vein of extremity: unspecified vein of extremity Laterality: left Chronicity: unspecified Qualified Code(s): I82.402 - Acute embolism and thrombosis of unspecified deep veins of left lower extremity Is this a current diagnosis for this admission?: Yes (4) DVT (deep venous thrombosis) Qualifiers: DVT location: lower extremity Affected thrombotic vein of extremity: tibial Laterality: left Is this a current diagnosis for this admission?: Yes (5) Anemia of chronic disease Is this a current diagnosis for this admission?: YesPlan: The patient is been seen by Dr. Lentz and mariah Guzman. (6) Multiple sclerosis Is this a current diagnosis for this admission?: Yes (7) Chronic anticoagulation Is this a current diagnosis for this admission?: Yes (8) GERD (gastroesophageal reflux disease) Qualifiers: Esophagitis presence: without esophagitis Qualified Code(s): K21.9 - Gastro-esophageal reflux disease without esophagitis Is this a current diagnosis for this admission?: Yes (9) Hyperlipidemia Qualifiers: Hyperlipidemia type: unspecified Qualified Code(s): E78.5 - Hyperlipidemia, unspecified Is this a current diagnosis for this admission?: Yes - Time Time Spent with patient: 25-34 minutes Medications reviewed and adjusted accordingly: Yes Anticipated discharge: Home Within: within 24 hours
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
[2016-07-12] MEDS: METOPROLOL SUCCINATE 25 MG TAB.SR.24H PO SCH (18:08)
[2016-07-12] MEDS: VENLAFAXINE HCL 75 MG CAP.SR.24H PO SCH (21:14)
[2016-07-12] MEDS: SIMVASTATIN 10 MG TABLET PO SCH (21:14)
[2016-07-12] MEDS: DIPHENHYDRAMINE HCL 25 MG CAPSULE PO SCH (21:24)
[2016-07-13] MEDS: LANSOPRAZOLE 30 MG TAB.RAP.DR PO SCH (05:26)
[2016-07-13 06:05] LABS: HEMATOCRIT 26.4 % (36.0-47.0); HGB HCT DIFFERENCE -2.4; MEAN CORPUSCULAR HEMOGLOBIN 19.9 pg (27.0-33.4); MEAN CORPUSCULAR HGB CONC 30.3 g/dL (32.0-36.0); MEAN CORPUSCULAR VOLUME 66 fl (80-97); RED BLOOD COUNT 4.02 10^6/uL (3.72-5.28); RED CELL DISTRIBUTION WIDTH 20.3 % (11.5-14.0); WHITE BLOOD COUNT 23.1 10^3/uL (4.0-10.5)
[2016-07-13 06:27] LABS: ANISOCYTOSIS 2+; BAND NEUTROPHILS % (MANUAL) 1 % (3-5); BASOPHILS % (MANUAL) 0 % (0-2); BURR CELLS 1+; EOSINOPHILS % (MANUAL) 1 % (0-6); HYPOCHROMASIA SLIGHT; LYMPHOCYTES % (MANUAL) 19 % (13-45); MICROCYTOSIS 2+; POIKILOCYTOSIS 2+; POLYCHROMASIA SLIGHT; TOTAL CELLS COUNTED 100; TOXIC GRANULATION 1+; TOXIC VACUOLATION PRESENT
[2016-07-13 06:28] LABS: OVALOCYTES SLIGHT; SCHISTOCYTES SLIGHT; TEAR DROP CELLS SLIGHT
[2016-07-13] MEDS: GABAPENTIN 300 MG CAPSULE PO SCH (08:25)
[2016-07-13] MEDS ORDERED: CYANOCOBALAMIN (VITAMIN B-12) INJ 1000 MCG/1 ML VIAL SUBCUT PRN (09:46)
[2016-07-13] MEDS: ENOXAPARIN SODIUM INJ 100 MG/1 ML DISP.SYRIN SUBCUT SCH (10:35)
[2016-07-13] MEDS: ASPIRIN 81 MG TABLET, CHEWABLE PO SCH (10:46)
[2016-07-13] MEDS: PREDNISONE 20 MG TABLET PO SCH (10:46)
[2016-07-13] MEDS: LEVOFLOXACIN 750 MG TABLET PO SCH (10:47)
[2016-07-13] MEDS: VALACYCLOVIR HCL 500 MG TABLET PO SCH (10:50)
[2016-07-13] MEDS: FLUTICASONE NASAL SPRAY 50 MCG/SPRY 120 SPRAY/16 GM NASL SCH (10:51)
[2016-07-13] MEDS: IRON POLYSACCHARIDES COMPLEX 150 MG CAPSULE PO SCH (12:49)
[2016-07-13 12:50] VITALS: BP 114/67
--- NOTE | 2016-07-13 16:15 | PDOC DISCHARGE SUMMARY ---
General - Admit/Disc Date/PCP Admission Date/Primary Care Provider: 07/09/16 13:57 ADRIANNA FREED MD Consulting spa therapist: Dr. Lentz Discharge Date: 07/13/16 - Discharge Diagnosis (1) Pulmonary embolism Is this a current diagnosis for this admission?: Yes (2) DVT (deep venous thrombosis) Is this a current diagnosis for this admission?: Yes (3) B12 deficiency anemia Is this a current diagnosis for this admission?: Yes (4) Anemia of chronic disease Is this a current diagnosis for this admission?: Yes (5) Multiple sclerosis Is this a current diagnosis for this admission?: Yes (6) Chronic anticoagulation Is this a current diagnosis for this admission?: Yes (7) GERD (gastroesophageal reflux disease) Is this a current diagnosis for this admission?: Yes (8) Hyperlipidemia Is this a current diagnosis for this admission?: Yes - Additional Information Resuscitation Status: Full Code Discharge Diet: As Tolerated Discharge Activity: Activity As Tolerated Home Medications: Armodafinil 150 mg PO QAM 07/09/16 Ascorbic Acid [Vitamin C with Lucia Hips] 1,000 mg PO WSUPPER 07/09/16 Atorvastatin Calcium [Lipitor 40 mg Tablet] 40 mg PO QHS 07/09/16 Baclofen [Baclofen 10 mg Tablet] 10 mg PO QIDP PRN 07/09/16 Dicyclomine HCl [Bentyl 10 mg Capsule] 10 mg PO Q6HP PRN 07/09/16 Diphenoxylate HCl/Atrop Sulf [Lomotil 2.5 mg Tablet] 1 tab PO QIDP PRN 07/09/16 Fenofibrate Nanocrystallized [Tricor 145 mg Tablet] 145 mg PO QHS 07/09/16 Fexofenadine HCl [Mer[place]] 180 mg PO DAILYP PRN 07/09/16 Fluticasone Propionate [Flonase Nasal [place] 50 Mcg/[place] 16 gm] 1 spray NASL DAILY 07/09/16 Gabapentin [Neurontin] 600 mg PO Q12 07/09/16 Glatiramer Acetate [Copaxone] 40 mg SQ MOWEFR@1000 07/09/16 Hydrocodone/Acetaminophen [[place] 5-325 Tablet] 1 each PO Q4HP PRN 07/09/16 Melatonin 10 mg PO HSP PRN 07/09/16 Metoprolol Succinate [Toprol Xl 25 mg Tab.sr] 25 mg PO WSUPPER 07/09/16 [place]-3S/Dha/Epa/Fish Oil [Fish Oil EC 1,200 mg Softgel] 1 each PO BID 07/09/16 Ondansetron [Zofran Odt 4 mg Tablet] 4 mg SL Q12HP PRN 07/09/16 Rabeprazole Sodium [Aciphex] 20 mg PO Q12 07/09/16 Valacyclovir HCl [Valtrex 500 mg Tablet] 500 mg PO DAILY 07/09/16 Venlafaxine HCl ER [Effexor Xr 37.5 mg Cap.sr] 75 mg PO QHS 07/09/16 Enoxaparin Sodium [Lovenox Inj 100 mg/1 ml Disp.syrin] 85 mg SUBCUT Q12 #20 disp.syrin 07/13/16 Iron Polysaccharides Complex [Nu-Iron 150 Capsule] 150 mg PO NOON #30 capsule Levofloxacin [Levaquin 750 mg Tablet] 750 mg PO DAILY #5 tablet 07/13/16 History of Present Illness Patient complains of: Shortness of breath, cough and chest pain History of Present Illness: LAUREN DIAL is a 61 year old female with past medical history positive for pulmonary embolism, multiple sclerosis, essential hypertension, dyslipidemia and pulmonary nodules being followed by pulmonary. She presents today to the emergency room with 1 week history of progressive cough and shortness of breath. She states that time she has had left-sided chest pain as well. She states this pain she was having prior to the onset of her cough. The pain she noticed normally comes on at rest. It is occasionally associated with palpitations and mild shortness of breath. She denies any fever or chills. She denies any upper respiratory symptoms otherwise. Her cough is harsh and nonproductive. She denies a family history of coronary artery disease. She states she did have a stress test she believes in 2006, which was reported to be negative for coronary ischemia. She herself has had no prior order artery disease. She also complains of pain in her left posterior knee. She notes mild swelling. There is no associated injury or trauma to the knee. Had no previous history of deep vein thrombosis. She has continued on Coumadin with therapeutic INR reportedly. Hospital Course Hospital Course: The patient was admitted to continuous telemetry unit. The patient underwent a CTA which was suggestive of PE the patient was noted also to have a DVT. Echocardiogram was obtained with not very remarkable findings mainly findings that are age-appropriate. Given the potential failure of outpatient Coumadin Dr. Lentz with hematology was consult. The patient was started and tolerated Lovenox therapy. The patient is discharged on Lovenox to follow-up with hematology. Hypercoagulable workup can be done outpatient basis some serologies have been sent and are pending. The patient was found to be significantly iron and B-12 deficient in these were repleted with IV iron and B- 12 injection. The patient overall feels much improved in comparison to admission. The patient was noted have a positive guaiac but no july bleeding per rectum. The patient is establishing is followed by Dr. Ryder and has agreed to follow-up with him. The patient has been cleared for discharge from a hematology perspective. Physical Exam Vital Signs: Temp Pulse Resp BP Pulse Ox 97.9 F 97 20 114/67 97 07/13/16 12:39 07/13/16 12:39 07/13/16 12:39 07/13/16 12:39 07/13/16 12:39 Intake & Output 07/11/16 07/12/16 07/13/16 23:59 23:59 23:59 Intake Total 760 1665 1305 Output Total 400 405 Balance 360 1260 1305 Weight 84.2 kg 85.3 kg 79.6 kg General appearance: PRESENT: no acute distress, well-developed, well-nourished Head exam: PRESENT: atraumatic, normocephalic Eye exam: PRESENT: conjunctiva pink, EOMI, PERRLA. ABSENT: scleral icterus Ear exam: PRESENT: normal external ear exam Mouth exam: PRESENT: moist, tongue midline Neck exam: ABSENT: carotid bruit, JVD, lymphadenopathy, thyromegaly Respiratory exam: PRESENT: rhonchi, symmetrical, unlabored. ABSENT: rales, tachypnea, wheezes Cardiovascular exam: PRESENT: RRR. ABSENT: diastolic murmur, rubs, systolic murmur Pulses: PRESENT: normal dorsalis pedis pul Vascular exam: PRESENT: normal capillary refill GI/Abdominal exam: PRESENT: normal bowel sounds, soft. ABSENT: distended, guarding, mass, organolmegaly, rebound, tenderness Rectal exam: PRESENT: deferred Extremities exam: PRESENT: full ROM. ABSENT: calf tenderness, clubbing, pedal edema Neurological exam: PRESENT: alert, awake, oriented to person, oriented to place , oriented to time, oriented to situation, CN II-XII grossly intact. ABSENT: motor sensory deficit Psychiatric exam: PRESENT: normal mood, unusual affect. ABSENT: homicidal ideation, suicidal ideation Skin exam: PRESENT: dry, intact, warm. ABSENT: cyanosis, rash Results Laboratory Results: Labs- Last Values WBC 23.1 10^3/uL (4.0-10.5) H 07/13/16 04:34 RBC 4.02 10^6/uL (3.72-5.28) 07/13/16 04:34 Hgb 8.0 g/dL (12.0-15.5) L 07/13/16 04:34 Hct 26.4 % (36.0-47.0) L 07/13/16 04:34 MCV 66 fl (80-97) L 07/13/16 04:34 MCH 19.9 pg (27.0-33.4) L 07/13/16 04:34 MCHC 30.3 g/dL (32.0-36.0) L 07/13/16 04:34 RDW 20.3 % (11.5-14.0) H 07/13/16 04:34 Plt Count 726 10^3/uL (150-450) H 07/13/16 04:34 Total Counted 100 07/13/16 04:34 Seg Neutrophils % Not Reportable 07/13/16 04:34 Seg Neuts % (Manual) 72 % (42-78) 07/13/16 04:34 Band Neutrophils % 1 % (3-5) L 07/13/16 04:34 Lymphocytes % Not Reportable 07/13/16 04:34 Lymphocytes % (Manual) 19 % (13-45) 07/13/16 04:34 Monocytes % Not Reportable 07/13/16 04:34 Monocytes % (Manual) 6 % (3-13) 07/13/16 04:34 Eosinophils % Not Reportable 07/13/16 04:34 Eosinophils % (Manual) 1 % (0-6) 07/13/16 04:34 Basophils % Not Reportable 07/13/16 04:34 Basophils % (Manual) 0 % (0-2) 07/13/16 04:34 Metamyelocytes % 1 % (0) H 07/13/16 04:34 Absolute Neutrophils Not Reportable 07/13/16 04:34 Abs Neuts (Manual) 17.1 10^3/uL (1.7-8.2) H 07/13/16 04:34 Absolute Lymphocytes Not Reportable 07/13/16 04:34 Abs Lymphs (Manual) 4.4 10^3/uL (0.5-4.7) 07/13/16 04:34 Absolute Monocytes Not Reportable 07/13/16 04:34 Abs Monocytes (Manual) 1.4 10^3/uL (0.1-1.4) 07/13/16 04:34 Absolute Eosinophils Not Reportable 07/13/16 04:34 Absolute Eos (Manual) 0.2 10^3/uL (0.0-0.6) 07/13/16 04:34 Absolute Basophils Not Reportable 07/13/16 04:34 Abs Basophils (Manual) 0.0 10^3/uL (0.0-0.2) 07/13/16 04:34 Toxic Granulation 1+ 07/13/16 04:34 Toxic Vacuolation PRESENT 07/13/16 04:34 Platelet Comment INCREASED 07/13/16 04:34 Polychromasia SLIGHT 07/13/16 04:34 Hypochromasia SLIGHT 07/13/16 04:34 Poikilocytosis 2+ 07/13/16 04:34 Anisocytosis 2+ 07/13/16 04:34 Microcytosis 2+ 07/13/16 04:34 Tear Drop Cells SLIGHT 07/13/16 04:34 Ovalocytes SLIGHT 07/13/16 04:34 [place] Cells 1+ 07/13/16 04:34 Schistocytes SLIGHT 07/13/16 04:34 Retic Count (auto) 3.42 % (0.66-2.85) H 07/10/16 04:04 Absolute Retic 0.140 10^6/uL (0.028-0.122) H 07/10/16 04:04 PT 27.1 SEC (11.4-15.4) H 07/10/16 07:47 INR 2.39 07/10/16 07:47 APTT 44.2 SEC (23.5-35.8) H 07/08/16 12:45 Sodium 139.9 mmol/L (137-145) 07/12/16 05:20 Potassium 4.3 mmol/L (3.6-5.0) 07/12/16 05:20 Chloride 106 mmol/L (98-107) 07/12/16 05:20 Carbon Dioxide 25 mmol/L (22-30) 07/12/16 05:20 Anion Gap 9 (5-19) 07/12/16 05:20 BUN 27 mg/dL (7-20) H 07/12/16 05:20 Creatinine 0.80 mg/dL (0.52-1.25) 07/12/16 05:20 Est GFR ( Amer) > 60 (>60) 07/12/16 05:20 Est GFR (Non-Af Amer) > 60 (>60) 07/12/16 05:20 Glucose 97 mg/dL (75-110) 07/12/16 05:20 Calcium 9.6 mg/dL (8.4-10.2) 07/12/16 05:20 Magnesium 2.4 mg/dL (1.6-2.3) H 07/12/16 05:20 Iron 16.3 ug/dL (37-170) L 07/10/16 14:59 TIBC 499 ug/dL (250-450) H 07/10/16 14:59 % Saturation 3 % 07/10/16 14:59 Transferrin 376 mg/dL (200-370) H 07/10/16 14:59 Ferritin 13.30 ng/mL (11.1-264.0) 07/10/16 14:59 Total Bilirubin 0.3 mg/dL (0.2-1.3) 07/08/16 12:45 Direct Bilirubin 0.0 mg/dL (0.0-0.3) 07/08/16 12:45 AST 18 U/L (14-36) 07/08/16 12:45 ALT 31 U/L (9-52) 07/08/16 12:45 Alkaline Phosphatase 71 U/L (38-126) 07/08/16 12:45 Creatine Kinase 73 U/L (30-135) 07/08/16 12:45 CK-MB (CK-2) 0.67 ng/mL (<4.55) 07/08/16 12:45 Troponin I < 0.012 ng/mL 07/09/16 07:45 Total Protein 6.9 g/dL (6.3-8.2) 07/08/16 12:45 Albumin 3.5 g/dL (3.5-5.0) 07/08/16 12:45 Triglycerides 128 mg/dL (<150) 07/09/16 07:45 Cholesterol 170.13 mg/dL (0-200) 07/09/16 07:45 LDL Cholesterol Direct 103 mg/dL (<100) H 07/09/16 07:45 VLDL Cholesterol 26.0 mg/dL (10-31) 07/09/16 07:45 HDL Cholesterol 37 mg/dL (>40) L 07/09/16 07:45 Vitamin B12 184.0 pg/mL (239-931) L 07/10/16 14:59 Folate 5.43 ng/mL (>2.76) 07/10/16 14:59 Urine Color YELLOW 07/12/16 08:23 Urine Appearance SLIGHTLY-CLOUDY 07/12/16 08:23 Urine pH 6.0 (5.0-9.0) 07/12/16 08:23 Ur Specific [place] 1.014 07/12/16 08:23 Urine Protein NEGATIVE mg/dL (NEGATIVE) 07/12/16 08:23 Urine Glucose (UA) NEGATIVE mg/dL (NEGATIVE) 07/12/16 08:23 Urine Ketones NEGATIVE mg/dL (NEGATIVE) 07/12/16 08:23 Urine Blood NEGATIVE (NEGATIVE) 07/12/16 08:23 Urine Nitrite NEGATIVE (NEGATIVE) 07/12/16 08:23 Urine Bilirubin NEGATIVE (NEGATIVE) 07/12/16 08:23 Urine Urobilinogen NEGATIVE mg/dL (<2.0) 07/12/16 08:23 Ur Leukocyte Esterase LARGE (NEGATIVE) H 07/12/16 08:23 Urine WBC (Auto) 17 /HPF 07/12/16 08:23 Urine RBC (Auto) 4 /HPF 07/12/16 08:23 Urine Bacteria (Auto) TRACE /HPF 07/12/16 08:23 Squamous Epi Cells Auto 4 /HPF 07/12/16 08:23 Urine Mucus (Auto) RARE /LPF 07/12/16 08:23 Urine Ascorbic Acid NEGATIVE (NEGATIVE) 07/12/16 08:23 Stool Occult Blood POSITIVE (NEGATIVE) 07/12/16 11:00 Anti-Parietal Cell Ab 2.2 Units (0.0-20.0) 07/12/16 05:20 Impressions: Chest/Abdomen CTA 07/08/16 00:00 IMPRESSION: 1. Positive for pulmonary embolus in a patient with known DVT. Venous Doppler Study 07/08/16 14:46 IMPRESSION: Positive for left calf DVT, posterior tibial and peroneal veins. Chest X-Ray 07/11/16 00:00 IMPRESSION: 1. Trace pleural effusions may be present. The lungs are otherwise clear. Qualifiers PATEINT BEING DISCHARGED WITH ANY OF THE FOLLOWING DIAGNOSIS?: No Plan Discharge Plan: On April made for the patient to follow-up with her foreign collection clerk Dr. Ryder regarding iron and B-12 deficiency anemia in the setting of a positive guaiac. The patient is to follow-up with hematology Dr. Lentz due to hypercoagulable state. Time Spent: Less than 30 Minutes
== END 2016-07-13 13:42 | disposition home or self-care (01) | DRG 300 ==
LOC: ER 12:10 → INTOOBSV 14:51 → EH 14:51 → UNDOADMOB 14:51 → OBSVTOIN 14:51 → 4N 17:31 → OBSVTOIN 07-09 13:57
PROVIDERS: ADMIT Family Medicine; ATTEND Family Medicine
PROC: 3E0F73Z Introduction of Anti-inflammatory into Respiratory Tract, Via Natural or Artificial Opening (ICD-10-PCS; principal; 2016-07-08)
DX: I82.4Z2 Acute embolism and thrombosis of unspecified deep veins of left distal lower extremity (principal); I27.82 Chronic pulmonary embolism; D51.9 Vitamin B12 deficiency anemia, unspecified; D63.8 Anemia in other chronic diseases classified elsewhere; G35 Multiple sclerosis; K21.9 Gastro-esophageal reflux disease without esophagitis; E78.5 Hyperlipidemia, unspecified; I10 Essential (primary) hypertension; R91.8 Other nonspecific abnormal finding of lung field; E78.00 Pure hypercholesterolemia, unspecified; E66.9 Obesity, unspecified; Z68.33 Body mass index [BMI] 33.0-33.9, adult; Z90.710 Acquired absence of both cervix and uterus; Z90.81 Acquired absence of spleen; Z79.01 Long term (current) use of anticoagulants; Z79.899 Other long term (current) drug therapy; Z83.3 Family history of diabetes mellitus; Z82.49 Family history of ischemic heart disease and other diseases of the circulatory system
CPT/HCPCS: 36415; 71020; 71275; 80048; 80053; 80061; 81001; 81270; 82272; 82550; 82553; 82607; 82728; 82746; 83540; 83550; 83735; 84466; 84484; 85025; 85027; 85045; 85597; 85598; 85610; 85613; 85730; 85732; 86146; 86147; 86148; 86255; 86340; 86849; 93005; 93010; 93306; 93971; 99285; G0378; J1650; J1885; J2270; J2930; J3420; J3490; J7512; J7620; Q0138

== ENCOUNTER → 2016-09-06 | Outpatient (CLI) | payer MEDICARE, BC ==
[2016-09-06 16:34] LABS: FOLATE 8.96 ng/mL (>2.76)
== END ==
LOC: OD 14:03
PROVIDERS: ATTEND Internal Medicine Nephrology
DX: D64.9 Anemia, unspecified (principal)
CPT/HCPCS: 36415; 82306; 82607; 82728; 82746; 83540; 83550

== ENCOUNTER → 2016-12-26 | Outpatient (CLI) | payer MEDICARE, BC ==
[2016-12-26 12:55] LABS: ALANINE AMINOTRANSFERASE 37 U/L (9-52); ALKALINE PHOSPHATASE 62 U/L (38-126); ANION GAP 11 (5-19); ASPARTATE AMINO TRANSFERASE 23 U/L (14-36); BILIRUBIN,DIRECT 0.4 mg/dL (0.0-0.4); BILIRUBIN,TOTAL 0.5 mg/dL (0.2-1.3); BLOOD UREA NITROGEN 21 mg/dL (7-20); CALCIUM 9.9 mg/dL (8.4-10.2); CARBON DIOXIDE 26 mmol/L (22-30); CHLORIDE 109 mmol/L (98-107); CHOLESTEROL 159.26 mg/dL (0-200); CREATININE RESULT 0.81 mg/dL (0.52-1.25); Direct HDL 40 mg/dL (>40); GLUCOSE 120 mg/dL (75-110); POTASSIUM 4.7 mmol/L (3.6-5.0); SODIUM 145.7 mmol/L (137-145); TOTAL PROTEIN 6.8 g/dL (6.3-8.2); TRIGLYCERIDES 193 mg/dL (<150)
[2016-12-26 13:07] LABS: DIRECT LDL 99 mg/dL (<100)
[2016-12-26 13:11] LABS: VLDL CHOLESTEROL 38.6 mg/dL (10-31)
== END ==
LOC: OD 11:06
PROVIDERS: ATTEND Internal Medicine Nephrology
DX: E78.2 Mixed hyperlipidemia (principal); E55.9 Vitamin D deficiency, unspecified; I10 Essential (primary) hypertension
CPT/HCPCS: 36415; 80053; 80061; 82306

== ENCOUNTER → 2017-01-08 | Outpatient (CLI) | payer MEDICARE, BC ==
--- NOTE | 2017-01-09 15:09 | WOMENS IMAGING REPORT ---
EXAM DESCRIPTION: BILAT SCREENING MAMMO W/CAD COMPLETED DATE/TIME: 01/08/2017 11:00 am REASON FOR STUDY: ROUTINE SCREENING; Z12.31 Z12.39 ENCOUNTER FOR OTH SCREENING FOR MALIGNANT NEOPLA SM OF Z12.31 ENCNTR SCREEN MAMMOGRAM FOR MALIGNANT NEOPLASM OF MARY COMPARISON: 2008 to 2013 TECHNIQUE: Standard craniocaudal and mediolateral oblique views of each breast recorded using digita l acquisition. LIMITATIONS: None. FINDINGS: RIGHT BREAST MASSES: No suspicious masses. CALCIFICATIONS: No new or suspicious calcifications. ARCHITECTURAL DISTORTION: None. DEVELOPING DENSITY: None. ASYMMETRY: None noted. OTHER: No other significant findings. LEFT BREAST MASSES: No suspicious masses. CALCIFICATIONS: No new or suspicious calcifications. ARCHITECTURAL DISTORTION: None. DEVELOPING DENSITY: Developing density retroareolar seen only on the CC view 11 mm from the nipple ASYMMETRY: None noted. OTHER: No other significant findings. Read with the assistance of CAD. .[facility] - R2 Cenova Version 1.3 .[facility] Imaging - R2 Cenova Version 1.3 .[facility] Imaging - R2 Cenova Version 2.4 .[facility] - R2 Cenova Version 2.4 .[facility] - R2 Final Tester Version 9.2 IMPRESSION: Developing density in the left breast BREAST DENSITY: b. There are scattered areas of fibroglandular density. BIRAD: 0 Incomplete: Needs Additional Imaging Evaluation and/or prior Mammograms for Comparison. RECOMMENDATION: RECOMMENDED FOLLOW-UP: Spot compression with ultrasound if indicated. The patient will be contacted for additional imaging. COMMENT: The patient has been notified of the results by letter per SA requirements. Additional no tification policies are in place for contacting patient with suspicious or incomplete findings. Quality ID #225: The [employer] recommends an annual screening mammogram for women aged 40 years or over. This facility utilizes a reminder system to ensure that all patients receive reminder letters, and/or direct phone calls for appointments. This includes reminders for routine scr eening mammograms, diagnostic mammograms, or other Breast Imaging Interventions when appropriate. Th is patient will be placed in the appropriate reminder system. The [employer] (ACR) has developed recommendations for screening MRI of the breast s in certain patient populations, to be used in conjunction with mammography. Breast MRI surveillanc e may be appropriate for women with more than 20% lifetime risk of developing breast cancer as deter mined by genetic testing, significant family history of the disease, or history of mantle radiation f or Hodgkins Disease. ACR Practice Guidelines 2008. TECHNICAL DOCUMENTATION: FINDING NUMBER: (1) ASSESSMENT: (1) JOB ID: [id number] [employer]- All Rights Reserved
== END ==
LOC: WI 10:47
PROVIDERS: ATTEND Internal Medicine Nephrology
DX: Z12.31 Encounter for screening mammogram for malignant neoplasm of breast (principal)
CPT/HCPCS: 77067; G0202

== ENCOUNTER → 2017-02-15 | Outpatient (CLI) | payer MEDICARE, BC ==
--- NOTE | 2017-02-15 11:54 | WOMENS IMAGING REPORT ---
EXAM DESCRIPTION: LEFT DIAGNOSTIC MAMMO W/CAD; U/S BREAST UNILAT LIMITED COMPLETED DATE/TIME: 02/15/2017 10:34 am; 02/15/2017 11:11 am REASON FOR STUDY: NODULAR DENSITY; LEFT NODULAR DENSITY N63 N63 UNSPECIFIED LUMP IN BREAST COMPARISON: 01/08/2017 and 12/22/2013. TECHNIQUE: Additional images include a true lateral view and spot compression MLO and CC views. LIMITATIONS: None. FINDINGS: BREAST: left MASSES: There are small circumscribed masses in both the superior and inferior breast. These have sm ooth margins. CALCIFICATIONS: No new or suspicious calcifications. ARCHITECTURAL DISTORTION: None. DEVELOPING DENSITY: None. ASYMMETRY: None noted. OTHER: No other significant findings. BREAST ULTRASOUND: TECHNIQUE: Static and dynamic grayscale images acquired of the left breast in the specific areas of c linical/mammographic concern. Selected color Doppler images recorded. ELASTOGRAPHY PERFORMED: No. LIMITATIONS: None. FINDINGS: MASS: Focal clusters of small cysts in the 12 o'clock and 6 o'clock breast, measuring 8 mm and 5 mm. Smooth margins with no distal shadowing. No solid mass identified. Normal glandular tissue. ELASTOGRAPHY CHARACTERISTICS: Not applicable. OTHER: No other significant finding. IMPRESSION: Small circumscribed masses corresponding to small clusters of cysts. No worrisome findi ngs. BREAST DENSITY: b. There are scattered areas of fibroglandular density. BIRAD: 2 Benign findings. RECOMMENDATION: RECOMMENDED FOLLOW UP: Birads 1 or 2: The patient should resume routine screening . SPECIFIC INTERVENTION/IMAGING/CONSULTATION RECOMMENDED:No additional intervention/ imaging/consultati on needed at this time. COMMUNICATION:The negative/benign results were communicated to the patient. COMMENT: The patient has been notified of the results by letter per SA requirements. Additional no tification policies are in place for contacting patient with suspicious or incomplete findings. Quality ID #225: The [employer] recommends an annual screening mammogram for women aged 40 years or over. This facility utilizes a reminder system to ensure that all patients receive reminder letters, and/or direct phone calls for appointments. This includes reminders for routine scr eening mammograms, diagnostic mammograms, or other Breast Imaging Interventions when appropriate. Th is patient will be placed in the appropriate reminder system. The [employer] (ACR) has developed recommendations for screening MRI of the breast s in certain patient populations, to be used in conjunction with mammography. Breast MRI surveillanc e may be appropriate for women with more than 20% lifetime risk of developing breast cancer as deter mined by genetic testing, significant family history of the disease, or history of mantle radiation f or Hodgkins Disease. ACR Practice Guidelines 2008. TECHNICAL DOCUMENTATION: FINDING NUMBER: (1) ASSESSMENT: (1) JOB ID: [id number] [employer]- All Rights Reserved
== END ==
LOC: WI 10:00
PROVIDERS: ATTEND Internal Medicine Nephrology
DX: N63 Unspecified lump in breast (principal)
CPT/HCPCS: 76642; G0206

== ENCOUNTER → 2017-07-05 | Outpatient (CLI) | payer MEDICARE, BC ==
[2017-07-05 13:48] LABS: ALANINE AMINOTRANSFERASE 26 U/L (9-52); ALBUMIN 4.2 g/dL (3.5-5.0); ALKALINE PHOSPHATASE 62 U/L (38-126); ANION GAP 11 (5-19); ASPARTATE AMINO TRANSFERASE 19 U/L (14-36); BILIRUBIN,DIRECT 0.4 mg/dL (0.0-0.4); BILIRUBIN,TOTAL 0.6 mg/dL (0.2-1.3); BLOOD UREA NITROGEN 16 mg/dL (7-20); CALCIUM 10.2 mg/dL (8.4-10.2); CARBON DIOXIDE 26 mmol/L (22-30); CHLORIDE 108 mmol/L (98-107); CHOLESTEROL 181.03 mg/dL (0-200); GLUCOSE 103 mg/dL (75-110); POTASSIUM 4.5 mmol/L (3.6-5.0); SODIUM 144.5 mmol/L (137-145); TRIGLYCERIDES 134 mg/dL (<150)
[2017-07-05 13:59] LABS: DIRECT LDL 132 mg/dL (<100)
== END ==
LOC: OD 12:44
PROVIDERS: ATTEND Internal Medicine Nephrology
DX: E78.2 Mixed hyperlipidemia (principal); E55.9 Vitamin D deficiency, unspecified; R73.01 Impaired fasting glucose
CPT/HCPCS: 36415; 80053; 80061; 82306

== ENCOUNTER 2017-11-14 08:26 | Day surgery (SDC) | payer MEDICARE, BC ==
[2017-11-14] MEDS ORDERED: FAMOTIDINE INJ/PF 20 MG/2 ML SDV IV ONE ×2 (09:50→10:00)
[2017-11-14] MEDS ORDERED: PROPOFOL INJ 200 MG/20 ML VIAL IV ONE (10:54)
[2017-11-14] MEDS ORDERED: PROMETHAZINE HCL INJ 25 MG/1 ML VIAL IV PRN ×2 (11:23)
[2017-11-14] MEDS ORDERED: FENTANYL CITRATE INJ/PF 100 MCG/2 ML AMPUL IV PRN ×3 (11:23)
[2017-11-14] MEDS ORDERED: MEPERIDINE HCL/PF INJ 25 MG/1 ML DISP.SYRIN IV PRN (11:23)
[2017-11-14] MEDS ORDERED: DIPHENHYDRAMINE HCL 50 MG/ML VIAL IV PRN (11:23)
--- NOTE | 2017-11-14 12:58 | Operative Report ---
Operative Report DATE OF SURGERY: 11/14/17 Operative Report: The risks, benefits and alternatives of the procedure including risks of bleeding, perforation requiring surgery are explained to the patient in detail and informed consent is obtained. The patient is brought back to the operating room and placed in the left, lateral decubital position. Timeout was called. Propofol medication is administered. A rectal examination is done which did not reveal any masses, tears or fissures. An Olympus videoscope was inserted into the patient's rectum. The scope was then carefully advanced all the way to the cecum. The cecum was identified by the usual anatomical landmarks including the ileocecal valve as well as the appendiceal office. Photodocumentation is obtained. The scope was then sequentially pulled back via the various segments of the colon including the ascending colon, hepatic flexure, transverse colon, splenic flexure, descending colon and finally into the rectosigmoid portions of the colon. Retroflexion maneuver is performed. The risks benefits and alternatives of the procedure explained to the patient in detail and informed consent is obtained.A GIF Olympus video scope was inserted into the patient's mouth and hypopharynx, the esophagus is identified intubated and insufflated, the scope was then advanced through the esophagus stomach and duodenum, retroflexion maneuver is done, the esophagus stomach and first and second portions of the duodenum examined PREOPERATIVE DIAGNOSIS: Personal history of gastric polyps. Surveillance colonoscopy POSTOPERATIVE DIAGNOSIS: 2 colon polyps; one in the descending colon that was removed via biopsy forceps and the other at the hepatic flexure before which are retrieved. Colonoscopy completed to the cecum. Internal hemorrhoids. Multiple large gastric polyps status post biopsy OPERATION: Colonoscopy with biopsy. EGD with biopsy SURGEON: BARBI CASTELLON ANESTHESIA: LMAC TISSUE REMOVED OR ALTERED: As noted above. COMPLICATIONS: None. ESTIMATED BLOOD LOSS: None. INTRAOPERATIVE FINDINGS: As noted above. PROCEDURE: Patient tolerated the procedure well. No immediate postprocedure complications are noted. Patient discharged in good condition. Discharge date 11/14/2017. Discharge diet: Regular. Discharge activity: Regular. 2-3 week follow-up to discuss findings. Patient is instructed to call the office or proceed to the emergency room should there be any further problems or questions. We will wait on pathology.
[2017-11-14 13:08] VITALS: BP 142/82
--- NOTE | 2017-11-15 07:46 | EKG REPORT ---
SEVERITY:- ABNORMAL ECG - SINUS RHYTHM LEFT VENTRICULAR HYPERTROPHY BORDERLINE T ABNORMALITIES, INFERIOR LEADS : Confirmed by: Gabriella Chi MD 15-Nov-2017 07:45:55
== END 2017-11-14 13:08 | disposition home or self-care (01) ==
LOC: OROUT 08:26
PROVIDERS: ATTEND Internal Medicine Gastroenterology
DX: K31.7 Polyp of stomach and duodenum (principal); D12.2 Benign neoplasm of ascending colon; D64.9 Anemia, unspecified; K64.8 Other hemorrhoids; I10 Essential (primary) hypertension; K21.9 Gastro-esophageal reflux disease without esophagitis
CPT/HCPCS: 43239; 45380; 88342 ×2; 88305 ×2; 93005; 93010; J2704; S0028; 813

== ENCOUNTER → 2017-12-26 | Outpatient (CLI) | payer MEDICARE, BC ==
[2017-12-26 13:30] LABS: ABSOLUTE BASOPHILS # (AUTO) 0.1 10^3/uL (0.0-0.2); ABSOLUTE EOSINOPHILS # (AUTO) 0.1 10^3/uL (0.0-0.6); ABSOLUTE LYMPHOCYTES (AUTO) 2.6 10^3/uL (0.5-4.7); ABSOLUTE MONOCYTES (AUTO) 0.7 10^3/uL (0.1-1.4); ABSOLUTE NEUT (AUTO) 4.6 10^3/uL (1.7-8.2); BASOPHILS % (AUTO) 1.3 % (0-2); EOSINOPHILS % (AUTO) 1.8 % (0-6); HEMATOCRIT 39.7 % (36.0-47.0); HEMOGLOBIN 13.4 g/dL (12.0-15.5); LYMPHOCYTES % (AUTO) 31.7 % (13-45); MEAN CORPUSCULAR HEMOGLOBIN 26.7 pg (27.0-33.4); MEAN CORPUSCULAR HGB CONC 33.8 g/dL (32.0-36.0); MEAN CORPUSCULAR VOLUME 79 fl (80-97); MONOCYTES % (AUTO) 8.5 % (3-13); PLATELET COUNT 500 10^3/uL (150-450); RED BLOOD COUNT 5.02 10^6/uL (3.72-5.28); RED CELL DISTRIBUTION WIDTH 14.7 % (11.5-14.0); SEGMENTED NEUTROPHILS % (AUTO) 56.7 % (42-78); TOTAL CELLS COUNTED % (AUTO) 100 %; WHITE BLOOD COUNT 8.2 10^3/uL (4.0-10.5)
[2017-12-26 13:52] LABS: ALANINE AMINOTRANSFERASE 24 U/L (9-52); ALKALINE PHOSPHATASE 54 U/L (38-126); ANION GAP 11 (5-19); ASPARTATE AMINO TRANSFERASE 27 U/L (14-36); BILIRUBIN,DIRECT 0.3 mg/dL (0.0-0.4); BILIRUBIN,TOTAL 0.6 mg/dL (0.2-1.3); BLOOD UREA NITROGEN 20 mg/dL (7-20); CALCIUM 9.5 mg/dL (8.4-10.2); CARBON DIOXIDE 26 mmol/L (22-30); CHLORIDE 110 mmol/L (98-107); GLUCOSE 99 mg/dL (75-110); POTASSIUM 4.6 mmol/L (3.6-5.0); TOTAL PROTEIN 6.9 g/dL (6.3-8.2)
[2017-12-26 13:55] LABS: APPEARANCE,URINE SLIGHTLY-CLOUDY; BILIRUBIN,URINE NEGATIVE (NEGATIVE); COLOR,URINE YELLOW; GLUCOSE, URINE NEGATIVE (NEGATIVE); KETONES,URINE NEGATIVE (NEGATIVE); LEUKOCYTE ESTERASE,URINE TRACE (NEGATIVE); NITRITE,URINE NEGATIVE (NEGATIVE); PROTEIN,URINE NEGATIVE (NEGATIVE); URINE SPECIFIC GRAVITY 1.024
== END ==
LOC: OD 12:24
PROVIDERS: ATTEND Internal Medicine Nephrology
DX: E78.2 Mixed hyperlipidemia (principal); R73.01 Impaired fasting glucose; E55.9 Vitamin D deficiency, unspecified
CPT/HCPCS: 36415; 80053; 81001; 82306; 85025

== ENCOUNTER → 2018-07-03 | Outpatient (CLI) | payer BC, MEDICARE ==
[2018-07-03 11:52] LABS: APPEARANCE,URINE SLIGHTLY-CLOUDY; BILIRUBIN,URINE NEGATIVE (NEGATIVE); COLOR,URINE YELLOW; GLUCOSE, URINE NEGATIVE (NEGATIVE); KETONES,URINE NEGATIVE (NEGATIVE); LEUKOCYTE ESTERASE,URINE LARGE (NEGATIVE); NITRITE,URINE NEGATIVE (NEGATIVE); PROTEIN,URINE NEGATIVE (NEGATIVE); URINE SPECIFIC GRAVITY 1.019; UROBILINOGEN,URINE NEGATIVE mg/dL (<2.0)
[2018-07-03 12:07] LABS: ALANINE AMINOTRANSFERASE 21 U/L (9-52); ALBUMIN 4.3 g/dL (3.5-5.0); ALKALINE PHOSPHATASE 107 U/L (38-126); ANION GAP 9 (5-19); ASPARTATE AMINO TRANSFERASE 18 U/L (14-36); BILIRUBIN,DIRECT 0.2 mg/dL (0.0-0.4); BILIRUBIN,TOTAL 0.5 mg/dL (0.2-1.3); BLOOD UREA NITROGEN 18 mg/dL (7-20); CALCIUM 9.7 mg/dL (8.4-10.2); CARBON DIOXIDE 27 mmol/L (22-30); CHLORIDE 107 mmol/L (98-107); CHOLESTEROL 215.33 mg/dL (0-200); GLUCOSE 96 mg/dL (75-110); POTASSIUM 4.2 mmol/L (3.6-5.0); SODIUM 143.3 mmol/L (137-145); TOTAL PROTEIN 6.8 g/dL (6.3-8.2); TRIGLYCERIDES 201 mg/dL (<150)
[2018-07-03 12:17] LABS: DIRECT LDL 142 mg/dL (<100)
[2018-07-03 12:30] LABS: VLDL CHOLESTEROL 40.2 mg/dL (10-31)
== END ==
LOC: OD 10:38
PROVIDERS: ATTEND Internal Medicine Nephrology
DX: E78.2 Mixed hyperlipidemia (principal); I10 Essential (primary) hypertension; R31.29 Other microscopic hematuria; R30.9 Painful micturition, unspecified
CPT/HCPCS: 36415; 80053; 80061; 81001; 87086

== ENCOUNTER 2018-10-21 09:20 | Day surgery (SDC) | payer MEDICARE, BC ==
[~2018-10-21 09:20] MED LIST: PROPOFOL INJ 200 MG/20 ML VIAL IV ONE
[2018-10-21 11:23] VITALS: BP 122/64
--- NOTE | 2018-10-21 12:44 | Operative Report ---
Operative Report DATE OF SURGERY: 10/21/18 Operative Report: The risks benefits and alternatives of the procedure explained to the patient in detail and informed consent is obtained.A GIF Olympus video scope was inserted into the patient's mouth and hypopharynx, the esophagus is identified intubated and insufflated, the scope was then advanced through the esophagus stomach and duodenum ,retroflexion maneuver is done ,the esophagus stomach and first and second portions of the duodenum examined. PREOPERATIVE DIAGNOSIS: Epigastric pain personal history of gastric polyps POSTOPERATIVE DIAGNOSIS: Fundic gland polyp status post biopsy. Biopsies obtained to rule out for Helicobacter pylori OPERATION: EGD with biopsy SURGEON: BARBI CASTELLON ANESTHESIA: LMAC TISSUE REMOVED OR ALTERED: As noted above. COMPLICATIONS: None. ESTIMATED BLOOD LOSS: None. INTRAOPERATIVE FINDINGS: As noted above. PROCEDURE: Patient tolerated the procedure well. No immediate postprocedure complications are noted. Patient is discharged in good condition. Discharge date 10/21/2018. Discharge diet: Regular. Discharge activity: Regular. 2 to 3-week follow-up to discuss findings. Patient is instructed to call the office or proceed to the emergency room should there be any further problems or questions. Wait on the pathology.
== END 2018-10-21 11:15 | disposition home or self-care (01) ==
LOC: END 09:20
PROVIDERS: ATTEND Internal Medicine Gastroenterology
DX: K31.7 Polyp of stomach and duodenum (principal); K29.50 Unspecified chronic gastritis without bleeding; J45.909 Unspecified asthma, uncomplicated; I10 Essential (primary) hypertension; D64.9 Anemia, unspecified
CPT/HCPCS: 43239; 88342 ×2; 88305 ×2; J2704; 731

== ENCOUNTER → 2019-01-22 | Outpatient (CLI) | payer MEDICARE, BC ==
[2019-01-22 10:16] LABS: CHOLESTEROL 147.27 mg/dL (0-200); TRIGLYCERIDES 122 mg/dL (<150)
[2019-01-22 10:27] LABS: DIRECT LDL 111 mg/dL (<100)
== END ==
LOC: OD 09:03
PROVIDERS: ATTEND Internal Medicine Nephrology
DX: I10 Essential (primary) hypertension (principal); E78.5 Hyperlipidemia, unspecified; F41.1 Generalized anxiety disorder
CPT/HCPCS: 36415; 80061

== ENCOUNTER → 2019-02-04 | Outpatient (CLI) | payer MEDICARE, BC ==
--- NOTE | 2019-02-04 12:57 | WOMENS IMAGING REPORT ---
EXAM DESCRIPTION: BILAT SCREENING MAMMO W/CAD COMPLETED DATE/TIME: 02/04/2019 10:23 am REASON FOR STUDY: Z12.31 SCREENING MAMMOGRAM Z12.31 ENCNTR SCREEN MAMMOGRAM FOR MALIGNANT NEOPLASM OF MARY COMPARISON: 01/08/2017 and 12/22/2013. EXAM PARAMETERS: Standard craniocaudal and mediolateral oblique views of each breast recorded using digital acquisition. Read with the assistance of CAD. .[facility] - [employer] Agent Version 9.2 LIMITATIONS: None. FINDINGS: No suspicious masses, suspicious calcifications or architectural distortion. No areas of c oncern. IMPRESSION: Negative MAMMOGRAM. BIRADS 1 BREAST DENSITY: b. There are scattered areas of fibroglandular density. BIRAD: ASSESSMENT: 1 NEGATIVE RECOMMENDATION: ROUTINE SCREENING COMMENT: The patient has been notified of the results by letter per MQSA requirements. Additional no tification policies are in place for contacting patient with suspicious or incomplete findings. Quality ID #225: The [employer] recommends an annual screening mammogram for women aged 40 years or over. This facility utilizes a reminder system to ensure that all patients receive reminder letters, and/or direct phone calls for appointments. This includes reminders for routine scr eening mammograms, diagnostic mammograms, or other Breast Imaging Interventions when appropriate. Th is patient will be placed in the appropriate reminder system. TECHNICAL DOCUMENTATION: FINDING NUMBER: (1) ASSESSMENT: (1) JOB ID: [id number] [employer]- All Rights Reserved Reading location - IP/workstation name: [email or web address]
== END ==
LOC: WI 09:45
PROVIDERS: ATTEND Internal Medicine Nephrology
DX: Z12.31 Encounter for screening mammogram for malignant neoplasm of breast (principal)
CPT/HCPCS: 77067

== ENCOUNTER → 2019-02-12 | Outpatient (CLI) | payer MEDICARE, BC ==
--- NOTE | 2019-02-12 12:53 | WOMENS IMAGING REPORT ---
EXAM DESCRIPTION: BONE DENSITY HIP/SPINE COMPLETED DATE/TIME: 02/12/2019 10:35 am REASON FOR STUDY: M81.0 AGE-RELATED OSTEOPOROSIS WITHOUT CURRENT PATHOLOGICAL FRACTURE M81.0 AGE-RE LATED OSTEOPOROSIS W/O CURRENT PATHOLOGICAL FRAC COMPARISON: 2008, 2010 TECHNIQUE: Dual-Energy X-ray Absorptiometry (DEXA) of the AP Spine and Hip. LIMITATIONS: None. FINDINGS: LUMBAR SPINE: The bone mineral density (BMD) measured from L1-L4 in the AP projection correlates with a T-score of -2.9, which is osteoporosis as defined by the World Health Organization. BMD Change vs Baseline: 1.8% decrease. HIP: The bone mineral density (BMD) measured in the left hip correlates with a T-score of -1.4, which is o steopenia as defined by the World Health Organization. BMD Change vs Baseline: 14% increase. 10 year Fracture Risk Assessment: Major Osteoporotic Fracture: Not available. Hip Fracture: Not available. IMPRESSION: 1. LUMBAR SPINE WHO CLASSIFICATION: OSTEOPOROSIS. 2. HIP WHO CLASSIFICATION: OSTEOPENIA. OVERALL ASSESSMENT: WHO CLASSIFICATION: OSTEOPOROSIS. COMMENT: The World Health Organization defines low BMD as follows: T-score: Normal: Greater than -1.0 Osteopenia: Between -1.0 and -2.5 Osteoporosis: Less than -2.5 without fractures Established osteoporosis: Less than -2.5 with fractures In general, you may wish to consider: Diagnosis Treatment Follow-up DEXA Normal BMD Prevention 2-3 years Osteopenia Prevention/Therapy 1-2 years Osteoporosis Therapy Yearly TECHNICAL DOCUMENTATION: JOB ID: [id number] [employer]- All Rights Reserved Reading location - IP/workstation name: [email or web address]
== END ==
LOC: WI 10:05
PROVIDERS: ATTEND Internal Medicine Nephrology
DX: M81.0 Age-related osteoporosis without current pathological fracture (principal)
CPT/HCPCS: 77080

== ENCOUNTER 2019-02-27 09:43 | Day surgery (SDC) | payer MEDICARE, BC ==
[~2019-02-27 09:43] MED LIST changes: +BUPIVACAINE HCL 0.75% INJ/PF (7.5 MG/1 ML) 10 ML SDV OS PRN; +CHONDR SU A NA/HYALUR INTRAOC KIT (SURGICARE) ONE; +EPINEPHRINE INJ/PF 1 MG/1 ML AMPULE ONE; +KETOROLAC TROMETHAMINE 0.45% 4 DROP/0.4 ML DROPERETTE OS PRN; +LIDOCAINE 1% INJ-PF (10 MG/ML) 30 ML SDV ONE; +LIDOCAINE 4% INJ/PF (40 MG/ML) 5 ML AMPUL OS PRN; -PROPOFOL INJ 200 MG/20 ML VIAL IV ONE
[2019-02-27] MEDS: TETRACAINE HCL 0.5% OPH SOLN 4 ML OS PRN ×3 (11:00→11:38)
[2019-02-27] MEDS: CYCLOPENTOLATE 0.2%/PHENYLEPHRINE 1% OPH SOLN 2 ML OS PRN ×3 (11:00→11:26)
[2019-02-27] MEDS: TROPICAMIDE 1% OPH SOLN 15 ML OS PRN ×3 (11:00→11:26)
[2019-02-27] MEDS: BESIFLOXACIN HCL 0.6% OPH SUSP 5 ML BOTTLE OS PRN ×4 (11:11→12:09)
[2019-02-27] MEDS ORDERED: FENTANYL CITRATE INJ/PF 100 MCG/2 ML AMPUL ONE (11:17)
[2019-02-27] MEDS ORDERED: MIDAZOLAM 2 MG/2 ML INJ ONE (11:17)
[2019-02-27] MEDS: DORZOLAMIDE HCL 2%/TIMOLOL MALEAT 0.5% OPH SOLN 10 ML OS PRN ×2 (12:06→12:09)
--- NOTE | 2019-02-27 17:56 | Operative Report ---
Operative Report-[facility] Operative Report: DATE OF SURGERY: 02/27/2019 PREOPERATIVE DIAGNOSIS: CATARACT, LEFT EYE. POSTOPERATIVE DIAGNOSIS: CATARACT, LEFT EYE. PROCEDURE PERFORMED: PHACOEMULSIFICATION WITH POSTERIOR CHAMBER INTRAOCULAR LENS, LEFT EYE. Intraocular Lens Model : SN 6AT8 9.0 Total Phaco Time: 3.71 CDE SURGEON: KELLIE MCDERMOTT MD ANESTHESIA: TOPICAL WITH MAC. INDICATIONS FOR SURGERY: Difficulty with night driving PROCEDURE: The patient was brought to the Operating Room and placed in a seated position. a lid speculum was placed in the eye. the 0.180, and 270 degree axis of the cornea was marked with a toric marker. the patien was place in a reclining position. Following tetracaine drops, topical anesthesia was administered. This consisted of instrument wipe pledgets soaked in a solution of 4% Xylocaine mixed with 0.75% Marcaine in a 1:2 ratio. A 2 x 1 cm pledget was placed in the superior fornix. A 1 x 1 cm pledget was placed in the inferior fornix. The eye was patched shut for 5 minutes. The patch was removed. The eye was sterilely prepped and draped in the usual manner. Lid speculum was placed in the eye. The pledgets were removed. 4-0 black silk sutures were placed around the superior and the inferior rectus muscles to be used as traction. A posterior limbal groove was created using a crescent knife and dissected anteriorly towards the cornea. A sharp point blade was used to create a paracentesis site at the 2 o'clock position. 0.2 cc non preserved Lidocaine was injected into the anterior chamber. A 2.4 mm keratome was used to enter the anterior chamber through the groove. Viscoelastic was injected into the anteriorchamber. An anterior capsulotomy was performed using Utrata forceps in a capsulorrhexis fashion. Hydrodissection and hydrodelineation were performed. Phacoemulsification was performed in [id number] technique. Following this, the I/A unit was used to remove residual cortex. Viscoelastic was injected into the capsular bag. The Intraocular lens was placed in the capsular bag. The 72 degree axis of the eye was marked using a toric marker and the previously marked sites as reference. The lens was centered at this axis. The I/A unit was used to remove residual viscoelastic. The wound was seen to be watertight under high and low pressure, and no sutures were placed. The in traocular lens was well centered. The pressure was adjusted in the eye to normal pressure. The 4-0 black silk sutures and lid speculum were removed. The eye was shielded after Besivance and Cosopt drops were placed. The patient tolerated the procedure well and was sent to the Recovery Room in good condition.
== END 2019-02-27 12:50 | disposition home or self-care (01) ==
LOC: SC 09:43
PROVIDERS: ATTEND Ophthalmology
DX: H25.13 Age-related nuclear cataract, bilateral (principal); H04.123 Dry eye syndrome of bilateral lacrimal glands; H59.812 Chorioretinal scars after surgery for detachment, left eye; G35 Multiple sclerosis; E78.00 Pure hypercholesterolemia, unspecified; D64.9 Anemia, unspecified; I10 Essential (primary) hypertension; Z79.899 Other long term (current) drug therapy; Z79.01 Long term (current) use of anticoagulants; Z86.711 Personal history of pulmonary embolism
CPT/HCPCS: 66984; 00142; V2787; J2250; J3490 ×5; A9270; J0171; J3010; 142

== ENCOUNTER 2019-03-18 09:43 | Day surgery (SDC) | payer MEDICARE, BC ==
[~2019-03-18 09:43] MED LIST changes: +BUPIVACAINE HCL 0.75% INJ/PF (7.5 MG/1 ML) 10 ML SDV OD PRN; -BUPIVACAINE HCL 0.75% INJ/PF (7.5 MG/1 ML) 10 ML SDV OS PRN; +DORZOLAMIDE HCL 2%/TIMOLOL MALEAT 0.5% OPH SOLN 10 ML OD PRN; +KETOROLAC TROMETHAMINE 0.45% 4 DROP/0.4 ML DROPERETTE OD PRN; -KETOROLAC TROMETHAMINE 0.45% 4 DROP/0.4 ML DROPERETTE OS PRN; +LIDOCAINE 4% INJ/PF (40 MG/ML) 5 ML AMPUL OD PRN; -LIDOCAINE 4% INJ/PF (40 MG/ML) 5 ML AMPUL OS PRN
[2019-03-18] MEDS: TROPICAMIDE 1% OPH SOLN 15 ML OD PRN ×3 (10:41→11:01)
[2019-03-18] MEDS: CYCLOPENTOLATE 0.2%/PHENYLEPHRINE 1% OPH SOLN 2 ML OD PRN ×3 (10:41→11:01)
[2019-03-18] MEDS: BESIFLOXACIN HCL 0.6% OPH SUSP 5 ML BOTTLE OD PRN ×3 (10:41→11:46)
[2019-03-18] MEDS: TETRACAINE HCL 0.5% OPH SOLN 4 ML OD PRN ×3 (10:42→11:21)
[2019-03-18] MEDS ORDERED: MIDAZOLAM 2 MG/2 ML INJ ONE (11:19)
[2019-03-18] MEDS ORDERED: FENTANYL CITRATE INJ/PF 100 MCG/2 ML AMPUL ONE (11:19)
--- NOTE | 2019-03-18 12:42 | Operative Report ---
Operative Report-[facility] Operative Report: DATE OF SURGERY: 03/18/2019 PREOPERATIVE DIAGNOSIS: CATARACT, RIGHT EYE. POSTOPERATIVE DIAGNOSIS: CATARACT,RIGHT EYE. PROCEDURE PERFORMED: PHACOEMULSIFICATION WITH TORIC POSTERIOR CHAMBER INTRAOCULAR LENS, RIGHT EYE. Intraocular Lens Model : SN 6 AT3 12.0 Total Phaco Time: 3.38 CDE SURGEON: KELLIE MCDERMOTT MD ANESTHESIA: TOPICAL WITH MAC. INDICATIONS FOR SURGERY: Difficulty with night driving PROCEDURE: The patient was brought to the Operating Room and placed in a seated position. a lid speculum was placed in the eye. the 0.180, and 270 degree axis of the cornea was marked with a toric marker. the patien was place in a reclining position. Following tetracaine drops, topical anesthesia was administered. This consisted of instrument wipe pledgets soaked in a solution of 4% Xylocaine mixed with 0.75% Marcaine in a 1:2 ratio. A 2 x 1 cm pledget was placed in the superior fornix. A 1 x 1 cm pledget was placed in the inferior fornix. The eye was patched shut for 5 minutes. The patch was removed. The eye was sterilely prepped and draped in the usual manner. Lid speculum was placed in the eye. The pledgets were removed. 4-0 black silk sutures were placed around the superior and the inferior rectus muscles to be used as traction. A conjunctival peritomy was made at the 10 o'clock position. Hemostasis was obtained with bipolar cautery. A posterior limbal groove was created using a crescent knife and dissected anteriorly towards the cornea. A sharp point blade was used to create a paracentesis site at the 2 o'clock position. 0.2 cc non preserved Lidocaine was injected into the anterior chamber. A 2.4 mm keratome was used to enter the anterior chamber through the groove. Viscoelastic was injected into the anteriorchamber. An anterior capsulotomy was performed using Utrata forceps in acapsulorrhexis fashion. Hydrodissection and hydrodelineation were performed. Phacoemulsification was performed in [id number]-[id number] technique. Following this, the I/A unit was used to remove residual cortex. Viscoelastic was injected into the capsular bag. The Intraocular lens was placed in the capsular bag. The 112 degree axis of the eye was marked using a toric marker and the previously marked sites as reference. The lens was centered at this axis. The I/A unit was used to remove residual viscoelastic. The wound was seen to be watertight under high and low pressure, and no sutures were placed. The intraocular lens was well centered. The pressure was adjusted in the eye to normal pressure. The 4-0 black silk sutures and lid speculum were removed. The eye was shielded after Besivance and Cosopt drops were placed. The patient tolerated the procedure well and was sent to the Recovery Room in good condition.
== END 2019-03-18 12:37 | disposition home or self-care (01) ==
LOC: SC 09:43
PROVIDERS: ATTEND Ophthalmology
DX: H25.11 Age-related nuclear cataract, right eye (principal); Z96.1 Presence of intraocular lens; Z79.01 Long term (current) use of anticoagulants; I10 Essential (primary) hypertension; Z79.899 Other long term (current) drug therapy
CPT/HCPCS: 66984; J2250; J3490 ×5; A9270; J0171; J3010; 142; V2787

== ENCOUNTER → 2019-10-22 | Outpatient (CLI) | payer MEDICARE, BC ==
[2019-10-22 10:43] LABS: APPEARANCE,URINE SLIGHTLY-CLOUDY; BILIRUBIN,URINE NEGATIVE (NEGATIVE); CALCIUM OXALATE CRYSTALS,URINE MODERATE /HPF; COLOR,URINE YELLOW; GLUCOSE, URINE NEGATIVE (NEGATIVE); KETONES,URINE NEGATIVE (NEGATIVE); LEUKOCYTE ESTERASE,URINE SMALL (NEGATIVE); NITRITE,URINE NEGATIVE (NEGATIVE); PROTEIN,URINE NEGATIVE (NEGATIVE); URINE SPECIFIC GRAVITY 1.018; UROBILINOGEN,URINE NEGATIVE mg/dL (<2.0)
[2019-10-22 10:44] LABS: ABSOLUTE BASOPHILS # (AUTO) 0.1 10^3/uL (0.0-0.2); ABSOLUTE EOSINOPHILS # (AUTO) 0.3 10^3/uL (0.0-0.6); ABSOLUTE LYMPHOCYTES (AUTO) 3.1 10^3/uL (0.5-4.7); ABSOLUTE MONOCYTES (AUTO) 0.9 10^3/uL (0.1-1.4); ABSOLUTE NEUT (AUTO) 5.7 10^3/uL (1.7-8.2); BASOPHILS % (AUTO) 1.2 % (0-2); EOSINOPHILS % (AUTO) 2.9 % (0-6); HEMATOCRIT 40.7 % (36.0-47.0); HEMOGLOBIN 14.4 g/dL (12.0-15.5); LYMPHOCYTES % (AUTO) 30.3 % (13-45); MEAN CORPUSCULAR HEMOGLOBIN 29.1 pg (27.0-33.4); MEAN CORPUSCULAR HGB CONC 35.3 g/dL (32.0-36.0); MEAN CORPUSCULAR VOLUME 82 fl (80-97); MONOCYTES % (AUTO) 8.8 % (3-13); PLATELET COUNT 455 10^3/uL (150-450); RED BLOOD COUNT 4.94 10^6/uL (3.72-5.28); RED CELL DISTRIBUTION WIDTH 14.3 % (11.5-14.0); SEGMENTED NEUTROPHILS % (AUTO) 56.8 % (42-78); TOTAL CELLS COUNTED % (AUTO) 100 %; WHITE BLOOD COUNT 10.1 10^3/uL (4.0-10.5)
[2019-10-22 10:55] LABS: ALBUMIN 4.2 g/dL (3.5-5.0); ALKALINE PHOSPHATASE 60 U/L (38-126); ANION GAP 9 (5-19); ASPARTATE AMINO TRANSFERASE 20 U/L (14-36); BILIRUBIN,TOTAL 0.5 mg/dL (0.2-1.3); BLOOD UREA NITROGEN 25 mg/dL (7-20); CALCIUM 10.2 mg/dL (8.4-10.2); CARBON DIOXIDE 26 mmol/L (22-30); CHLORIDE 108 mmol/L (98-107); GLUCOSE 111 mg/dL (75-110); POTASSIUM 4.4 mmol/L (3.6-5.0); TOTAL PROTEIN 6.9 g/dL (6.3-8.2); TRIGLYCERIDES 107 mg/dL (<150)
[2019-10-22 11:06] LABS: DIRECT LDL 96 mg/dL (<100)
== END ==
LOC: OD 09:35
PROVIDERS: ATTEND Internal Medicine Nephrology
DX: E78.5 Hyperlipidemia, unspecified (principal); I10 Essential (primary) hypertension; R31.29 Other microscopic hematuria
CPT/HCPCS: 36415; 80053; 80061; 81001; 85025

== ENCOUNTER → 2020-02-06 | Outpatient (CLI) | payer MEDICARE, BC ==
--- NOTE | 2020-02-06 16:54 | WOMENS IMAGING REPORT ---
EXAM DESCRIPTION: BILAT SCREENING MAMMO W/CAD IMAGES COMPLETED DATE/TIME: 02/06/2020 2:09 pm REASON FOR STUDY: Z12.31 ENCOUNTER FOR SCREENING MAMMOGRAM FOR MALIGNANT NEOPLASM OF BREAST Z12.31 ENCNTR SCREEN MAMMOGRAM FOR MALIGNANT NEOPLASM OF [place] COMPARISON: Multiple since 2010 EXAM PARAMETERS: Standard craniocaudal and mediolateral oblique views of each breast recorded using digital acquisition. Read with the assistance of CAD. .[facility] - [employer] Tr[employer] Version 9.2 LIMITATIONS: None. FINDINGS: No suspicious masses, suspicious calcifications or architectural distortion. No areas of c oncern. IMPRESSION: NEGATIVE MAMMOGRAM. BIRADS 1 BREAST DENSITY: b. There are scattered areas of fibroglandular density. BIRAD: ASSESSMENT: 1 NEGATIVE RECOMMENDATION: ROUTINE SCREENING Please continue yearly bilateral screening mammography/tomosynthesis in January 2021 COMMENT: The patient has been notified of the results by letter per [place] requirements. Additional no tification policies are in place for contacting patient with suspicious or incomplete findings. Quality ID #[id number]: The [employer] recommends an annual screening mammogram for women aged 40 years or over. This facility utilizes a reminder system to ensure that all patients receive reminder letters, and/or direct phone calls for appointments. This includes reminders for routine scr eening mammograms, diagnostic mammograms, or other Breast Imaging Interventions when appropriate. Th is patient will be placed in the appropriate reminder system. TECHNICAL DOCUMENTATION: FINDING NUMBER: (1) ASSESSMENT: (1) JOB ID: [id number] 2010 [email or web address]- All Rights Reserved Reading location - IP/workstation name: [email or web address]
== END ==
LOC: WI 13:43
PROVIDERS: ATTEND Internal Medicine Nephrology
DX: Z12.31 Encounter for screening mammogram for malignant neoplasm of breast (principal)
CPT/HCPCS: 77067